=== PATIENT | male | born 1975 | race African-American/Black ===

== ENCOUNTER 2018-02-26 00:05 | Inpatient (IN) | payer SELFPAY ==
[2018-02-26] VITALS (8 sets, daily range): BP systolic 120–162; BP diastolic 59–96
[~2018-02-26] VITALS: Ht 193 cm; Wt 129.3 kg
--- OUTSIDE RECORDS SUMMARY | 2018-02-26 00:08 | XMS REPORT ---
[facility] Address Unknown Phone Unavailable Care Team Providers Care Voice Professor Name Role Phone Unavailable Unavailable Problems This patient has no known problems. Allergies, Adverse Reactions, Alerts This patient has no known allergies or adverse reactions. Medications This patient has no known medications. Encounters Start Date/Time End Date/Time Encounter Type Admission Type Attending [facility] [place] Facility Care Department Encounter ID 2018-07-11 00:00:00 2018-07-11 00:00:00 Outpatient [facility] [id number] 2018-05-03 00:00:00 2018-05-03 00:00:00 Outpatient [facility] [id number] 2018-03-18 00:00:00 2018-03-18 00:00:00 Outpatient [facility] [id number] 2018-03-08 00:00:00 2018-03-08 00:00:00 Outpatient [facility] [id number] 2018-02-28 00:00:00 2018-02-28 00:00:00 Outpatient [facility] [id number] 2018-02-25 23:03:00 2018-02-25 23:03:00 Emergency [facility] [id number] 2018-02-09 10:00:04 2018-02-09 10:00:04 Outpatient [facility] [id number] 2018-02-07 11:15:49 2018-02-07 11:15:49 Outpatient [facility] [id number] 2018-02-07 10:53:34 2018-02-07 10:53:34 Outpatient [facility] [id number] 2018-02-07 10:14:14 2018-02-07 10:14:14 Outpatient [facility] [id number] 2018-02-02 10:23:16 2018-02-02 10:23:16 Outpatient [facility] [id number] 2018-01-20 00:00:00 2018-01-20 00:00:00 Outpatient [facility] [id number] 2018-01-05 00:00:00 2018-01-05 00:00:00 Outpatient [facility] [id number] 2018-01-04 00:00:00 2018-01-04 00:00:00 Outpatient [facility] [id number] 2017-12-28 09:28:17 2017-12-28 09:28:17 Outpatient [facility] [id number] 2017-12-27 00:00:00 2017-12-27 00:00:00 Outpatient [facility] [id number] 2017-12-21 08:11:07 2017-12-21 08:11:07 Outpatient [facility] [id number] 2017-12-14 00:00:00 2017-12-14 00:00:00 Outpatient [facility] [id number] 2017-12-13 14:28:28 2017-12-13 14:28:28 Outpatient [facility] [id number] 2017-12-10 00:00:00 2017-12-10 00:00:00 Outpatient [facility] [id number] 2017-12-07 00:00:00 2017-12-07 00:00:00 Outpatient [facility] [id number] 2017-12-06 14:41:34 2017-12-06 14:41:34 Outpatient [facility] [id number] 2017-12-03 00:00:00 2017-12-03 00:00:00 Outpatient [facility] [id number] 2017-12-02 00:00:00 2017-12-02 00:00:00 Outpatient [facility] [id number] 2017-12-02 00:00:00 2017-12-02 00:00:00 Outpatient [facility] [id number] 2017-11-30 00:00:00 2017-11-30 00:00:00 Outpatient [facility] [id number] 2017-11-29 12:23:32 2017-11-29 12:23:32 Outpatient [facility] [id number] 2017-11-26 13:15:51 2017-11-26 13:15:51 Outpatient [facility] [id number] 2017-11-26 00:00:00 2017-11-26 00:00:00 Outpatient [facility] [id number] 2017-11-25 07:59:18 2017-11-25 07:59:18 Outpatient [facility] [id number] 2017-11-25 00:00:00 2017-11-25 00:00:00 Outpatient [facility] [id number] 2017-11-23 09:28:34 2017-11-23 09:28:34 Outpatient [facility] [id number] 2017-11-22 00:00:00 2017-11-22 00:00:00 Outpatient [facility] [id number] 2017-11-19 00:00:00 2017-11-19 00:00:00 Outpatient [facility] [id number] 2017-11-18 09:30:32 2017-11-18 09:30:32 Outpatient [facility] [id number] 2017-11-18 00:00:00 2017-11-18 00:00:00 Outpatient [facility] [id number] 2017-11-18 00:00:00 2017-11-18 00:00:00 Outpatient [facility] [id number] 2017-11-17 00:00:00 2017-11-17 00:00:00 Outpatient [facility] [id number] 2017-11-16 00:00:00 2017-11-16 00:00:00 Outpatient [facility] [id number] 2017-11-12 08:35:04 2017-11-12 08:35:04 Outpatient [facility] [id number] 2017-11-11 00:00:00 2017-11-11 00:00:00 Outpatient [facility] [id number] 2017-11-09 14:34:44 2017-11-09 14:34:44 Outpatient [facility] [id number] 2017-11-09 00:00:00 2017-11-09 00:00:00 Outpatient [facility] [id number] 2017-11-08 13:14:45 2017-11-08 13:14:45 Outpatient [facility] [id number] 2017-11-05 07:29:02 2017-11-05 07:29:02 Outpatient [facility] [id number] 2017-10-29 09:17:04 2017-10-29 09:17:04 Outpatient [facility] [id number] 2017-10-20 14:15:44 2017-10-20 14:15:44 Outpatient [facility] [id number] 2017-10-15 12:57:40 2017-10-15 12:57:40 Outpatient [facility] [id number] 2017-10-06 00:00:00 2017-10-06 00:00:00 Outpatient [facility] [id number] 2017-09-28 00:00:00 2017-09-28 00:00:00 Outpatient [facility] [id number] 2017-09-09 00:00:00 2017-09-09 00:00:00 Outpatient [facility] [id number] 2017-08-25 00:00:00 2017-08-25 00:00:00 Outpatient [facility] [id number] 2017-07-27 07:59:30 2017-07-27 07:59:30 Outpatient [facility] [id number] 2017-07-26 14:49:16 2017-07-26 14:49:16 Outpatient [facility] [id number] 2017-07-21 17:39:29 2017-07-21 17:39:29 Emergency [facility] [id number] 2017-07-21 16:30:12 2017-07-21 16:30:12 Emergency [facility] [id number] 2017-06-07 00:00:00 2017-06-07 00:00:00 Outpatient [facility] [id number] 2017-05-24 00:00:00 2017-05-24 00:00:00 Outpatient [facility] [id number] 2017-05-21 00:00:00 2017-05-21 00:00:00 Outpatient [facility] [id number] 2017-05-14 00:00:00 2017-05-14 00:00:00 Outpatient [facility] [id number] 2017-05-11 00:00:00 2017-05-11 00:00:00 Outpatient [facility] [id number] 2017-04-28 00:00:00 2017-04-28 00:00:00 Outpatient [facility] [id number] 2017-04-28 00:00:00 2017-04-28 00:00:00 Outpatient [facility] [id number] 2017-04-21 10:19:24 2017-04-21 10:19:24 Outpatient [facility] [id number] 2017-04-14 00:00:00 2017-04-14 00:00:00 Outpatient [facility] [id number] 2017-04-12 15:16:50 2017-04-12 15:16:50 Outpatient [facility] [id number] 2017-04-12 13:21:55 2017-04-12 13:21:55 Outpatient [facility] [id number] 2017-04-07 10:28:10 2017-04-07 10:28:10 Outpatient [facility] [id number] 2017-04-07 08:59:57 2017-04-07 08:59:57 Outpatient [facility] [id number] 2017-04-07 08:30:47 2017-04-07 08:30:47 Outpatient [facility] [id number]
[2018-02-26] MEDS ORDERED: LISINOPRIL10 MG PO (00:11)
[2018-02-26] MEDS ORDERED: GLYBURIDE5 MG PO (00:11)
[2018-02-26] MEDS ORDERED: LEVEMIR100 UNIT/1 SC (00:11)
[2018-02-26] MEDS ORDERED: ACETAMINOPHEN 325 MG TAB PO ONE (00:15)
[2018-02-26] MEDS ORDERED: SODIUM CHLORIDE 0.9% 1000ML 1,000 ML IV ONE (00:15)
[2018-02-26 00:32] LABS: BASOPHILS # (AUTO) 0.1 (0.0-0.1); BASOPHILS % 0.2 % (0.0-1.0); HEMATOCRIT 39.9 % (38.2-49.6); HEMOGLOBIN 13.5 g/dL (14.0-18.0); LYMPHOCYTES # (AUTO) 1.2 (1.0-3.2); LYMPHOCYTES % 4.3 % (18.0-39.1); MEAN CORPUSCULAR HGB CONC 33.8 g/dL (31-35); MEAN CORPUSCULAR VOLUME 82.6 fL (81-99); MONOCYTES # (AUTO) 2.4 (0.2-0.8); NEUTROPHILS # (AUTO) 23.1 (2.1-6.9); NEUTROPHILS % 84.9 % (38.7-80.0); PLATELET COUNT 276 x10e3/uL (140-360); RED BLOOD COUNT 4.83 x10e6/uL (4.3-5.7); RED CELL DISTRIBUTION WIDTH 12.9 % (11.7-14.4)
[2018-02-26 00:52] LABS: ALBUMIN 2.4 g/dL (3.5-5.0); ALBUMIN/GLOBULIN RATIO 0.4 (0.8-2.0); ANION GAP 20.7 mmol/L (8-16); CALCIUM 9.9 mg/dL (8.4-10.2); CREATININE, SERUM 2.73 mg/dL (0.72-1.25); POTASSIUM 3.7 mmol/L (3.5-5.1)
--- NOTE | 2018-02-26 01:19 | Diagnostic Imaging Report ---
FOOT LEFT COMPLETE HISTORY: Evaluation for osteomyelitis COMPARISON: None FINDINGS: Bones: There is evidence of bony lucency at the medial proximal fifth phalanx Osseous alignment is within normal limits. Joints: The joint spaces are well-maintained. Soft tissues: Soft tissue swelling involving the mid and forefoot with extensive subcutaneous emphysema about the dorsum of the forefoot overlying the region of the fourth and fifth metatarsophalangeal joints. IMPRESSION: Findings are compatible with soft tissue gangrene with gas producing bacteria and associated questionable osteomyelitis of the proximal fifth phalanx Signed by: Dr. Jared Whitten M.D. on 02/26/2018 1:15 AM
[2018-02-26] MEDS ORDERED: ONDANSETRON HCL INJ 2 MG/ML VIAL IV PRN (02:00)
[2018-02-26] MEDS ORDERED: DEXTROSE 50% SYRINGE 50 ML IV PRN (02:00)
[2018-02-26] MEDS: VANCOMYCIN 1GM/NS 250 ML 250 ML IV SCH ×2 (03:19→12:24)
[2018-02-26] MEDS: HYDROMORPHONE 1MG/1ML INJ IV PRN ×2 (04:35→12:23)
[2018-02-26] MEDS: SODIUM CHLORIDE 0.9% 1000ML 1,000 ML IV SCH ×3 (05:40→17:01)
[2018-02-26] MEDS: PIPER-TAZ 3.375 GM 50 ML IV SCH ×3 (06:21→23:33)
[2018-02-26] MEDS: INSULIN REGULAR, HUMAN 100 UNIT/1 ML 3ML VIAL SQ SCH ×4 (07:30→21:46)
[2018-02-26] MEDS: LISINOPRIL 10 MG TAB PO SCH (13:15)
[2018-02-26] MEDS ORDERED: GLYBURIDE 3 MG PO SCH (13:15)
[2018-02-26] MEDS: METRONIDAZOLE 500MG/NS 100ML 100 ML IV SCH ×2 (13:53→22:33)
[2018-02-26] MEDS: INSULIN DETEMIR 100 UNIT/ML PEN SQ SCH ×2 (14:00→21:46)
[2018-02-26] MEDS ORDERED: LIDOCAINE HCL 2% LOCAL INJ 5 ML SDV VIAL INJ ONE (15:24)
[2018-02-26] MEDS ORDERED: ONDANSETRON HCL INJ 2 MG/ML VIAL ONE (15:24)
[2018-02-26] MEDS ORDERED: SEVOFLURANE INHAL SOLN 250 ML PEN BTL ONE (15:24)
[2018-02-26] MEDS ORDERED: PROPOFOL IV EMULSION 10 MG/ML 20 ML VIAL ONE (15:24)
--- NOTE | 2018-02-26 16:23 | History and Physical ---
The patient is normally seen at one of the [facility] clinics. CHIEF COMPLAINT: Swelling and erythema, left foot. HISTORY OF PRESENT ILLNESS: Mr. Kulkarni is a 43-year-old gentleman who presents with swelling and erythema of the left lateral foot that has been going on for several days. The patient said he stepped on something that caused a cut on the left lateral forefoot and has subsequently become infected. REVIEW OF SYSTEMS: He has had some subjective fever and chills. He denies weight loss. He denies sore throat. He denies chest pain or palpitations. Denies shortness of breath, wheezing or cough. He denies abdominal pain, nausea, vomiting or melena. Denies dysuria or flank pain. Denies rash or pruritus. Has swelling and erythema of the left lateral foot as noted. He denies bleeding or bruising. He denies joint pain or swelling. He denies headache, vertigo or loss of consciousness. He denies depression, agitation, homicidal or suicidal ideation. PAST MEDICAL HISTORY: Significant for hypertension and diabetes for several years. In 2010, the patient had a pericardial window done for acute pericarditis, etiology unknown. Has had no subsequent cardiac issues since then. CURRENT MEDICATIONS: Glyburide 6 mg daily. Lisinopril 10 mg daily. Levemir 10 units at bedtime. ALLERGIES: NO KNOWN DRUG ALLERGIES. FAMILY HISTORY: Significant for hypertension and diabetes. SOCIAL HISTORY: He is and Hebrew is his primary language. He does not smoke, drink or use illegal drugs. He is generally independently functioning. PHYSICAL EXAM: PSYCHIATRIC: He is alert and oriented times 3 with normal mood and affect. CONSTITUTIONAL: Has a normal body habitus. Is in no acute distress. VITAL SIGNS: Blood pressure 157/91. Pulse 105 and regular. Respiratory rate 18. O2 sat 98%. Temperature 96.3. He presented with a temperature of 100.2. HEENT: Head is atraumatic. His eyes are anicteric with clear conjunctivae. Ears and nares are without erythema or discharge. Oropharynx is clear. NECK: Is supple with no mass or thyromegaly. LYMPHATIC SYSTEM: He has no palpable cervical, axillary or inguinal adenopathy. CARDIOVASCULAR: Heart has a regular rate and rhythm without murmur or extra heart sounds. No carotid bruit. He has trace edema in the left foot where the infection is. No edema in the right foot and has weak but palpable dorsal pedal pulse bilaterally. RESPIRATORY: Clear to auscultation and percussion with normal respiratory effort. GASTROINTESTINAL: Abdomen is soft without organomegaly, masses or tenderness. Normal bowel sounds present. CUTANEOUS: Skin is warm and dry to touch. He has some swelling and erythema of the left lateral forefoot with some evidence of gas under the skin and abscess formation between the 4th and 5th metatarsal. MUSCULOSKELETAL: Joints are normal alignment without erythema or swelling. His ankle appears to be spared. It is predominantly involving the left forefoot, lateral aspect. NEUROLOGIC: Exam is nonfocal with intact cranial nerves and no motor or sensory deficits. He has no calf tenderness. DIAGNOSTIC STUDIES: X-rays of the left foot shows gas gangrene of the dorsal lateral aspect of the left foot. CBC shows a white count of 27.1 with 85% neutrophils, 4% lymphocytes and 9% monocytes. Hemoglobin 13.5, hematocrit 39.4, platelet count 276,000. His chemistry shows normal electrolytes. CO2 25. Creatinine 2.73. BUN 23 for a GFR of 31. Calcium is 9.9. Glucose 348. Followup glucose 356. Transaminases and bilirubin are normal. Alkaline phosphatase slightly elevated at 131. IMPRESSION AND PLAN 1. Cellulitis/abscess, left foot with severe sepsis. Patient was started on IV vancomycin and Zosyn. Podiatry has been consulted. The patient received a IV fluid bolus and is currently receiving IV fluids at 125 mL an hour. 2. Acute kidney injury versus chronic kidney disease. The patient has received fluid bolus and is now getting aggressive IV fluid hydration. Will monitor renal function until we establish his baseline. 3. Diabetic foot ulcer on the left lateral forefoot. Will get wound care involved and podiatry has been consulted as well. 4. Hypertension. The patient will continue his lisinopril. 5. Type 2 diabetes. The patient will continue his glyburide and will add sliding scale insulin for better glycemic control as well as some low-dose :Levemir. 6. For prophylaxis the patient will be on Pepcid for GI prophylaxis. No DVT prophylaxis at this time since the patient remains ambulatory and will likely have surgery in the near future. Job#: [id number]
[2018-02-26] MEDS: FAMOTIDINE 20 MG TAB PO SCH (17:00)
[2018-02-26] MEDS ORDERED: MIDAZOLAM HCL 2 MG/2 ML VIAL ONE (17:50)
[2018-02-26] MEDS ORDERED: FENTANYL CITRATE/PF 100MCG/2 ML INJ ONE (17:50)
[2018-02-27] VITALS (8 sets, daily range): BP systolic 123–142; BP diastolic 66–86
[2018-02-27] MEDS: SODIUM CHLORIDE 0.9% 1000ML 1,000 ML IV SCH (02:55)
[2018-02-27] MEDS: METRONIDAZOLE 500MG/NS 100ML 100 ML IV SCH ×3 (05:11→21:51)
[2018-02-27] MEDS: PIPER-TAZ 3.375 GM 50 ML IV SCH ×3 (06:14→22:07)
[2018-02-27 06:44] LABS: BASOPHILS # (AUTO) 0.1 (0.0-0.1); BASOPHILS % 0.3 % (0.0-1.0); HEMATOCRIT 33.7 % (38.2-49.6); HEMOGLOBIN 11.6 g/dL (14.0-18.0); LYMPHOCYTES # (AUTO) 1.1 (1.0-3.2); LYMPHOCYTES % 4.3 % (18.0-39.1); MEAN CORPUSCULAR HEMOGLOBIN 28.4 pg (28-32); MEAN CORPUSCULAR HGB CONC 34.4 g/dL (31-35); MEAN CORPUSCULAR VOLUME 82.4 fL (81-99); MONOCYTES # (AUTO) 2.3 (0.2-0.8); MONOCYTES % 9.2 % (4.4-11.3); NEUTROPHILS # (AUTO) 20.8 (2.1-6.9); NEUTROPHILS % 83.4 % (38.7-80.0); PLATELET COUNT 262 x10e3/uL (140-360); RED BLOOD COUNT 4.09 x10e6/uL (4.3-5.7); RED CELL DISTRIBUTION WIDTH 12.9 % (11.7-14.4)
[2018-02-27 07:15] LABS: CHOL/HDL RATIO 13.1 (3.9-4.7); MAGNESIUM 1.4 MG/DL (1.3-2.1)
[2018-02-27] MEDS: INSULIN REGULAR, HUMAN 100 UNIT/1 ML 3ML VIAL SQ SCH ×4 (07:30→21:12)
[2018-02-27] MEDS: FAMOTIDINE 20 MG TAB PO SCH ×2 (07:30→16:30)
[2018-02-27] MEDS: GLIPIZIDE 5 MG TAB PO SCH (07:30)
[2018-02-27 07:35] LABS: ALBUMIN 1.7 g/dL (3.5-5.0); ALBUMIN/GLOBULIN RATIO 0.3 (0.8-2.0); ANION GAP 15.1 mmol/L (8-16); CALCIUM 8.9 mg/dL (8.4-10.2); CREATININE, SERUM 2.52 mg/dL (0.72-1.25); POTASSIUM 3.1 mmol/L (3.5-5.1)
[2018-02-27 07:38] LABS: THYROID STIMULATING HORMONE 1.542 uIU/mL (0.350-4.940)
[2018-02-27] MEDS ORDERED: GLYBURIDE 6 MG PO SCH (09:00)
[2018-02-27] MEDS: INSULIN DETEMIR 100 UNIT/ML PEN SQ SCH ×2 (09:00→21:12)
[2018-02-27] MEDS: VANCOMYCIN 1GM/NS 250 ML 250 ML IV SCH (09:36)
[2018-02-27] MEDS: LISINOPRIL 10 MG TAB PO SCH (09:36)
[2018-02-27] MEDS ORDERED: BUPIVACAINE HCL 0.5% INJ 30 ML VIAL INJ ONE (10:03)
[2018-02-27] MEDS ORDERED: BACITRACIN 50,000 UNIT VIAL ONE (10:03)
[2018-02-27] MEDS ORDERED: DEXAMETHASONE SOD PHOS INJ 4 MG/ML VIAL ONE (10:03)
[2018-02-27] MEDS ORDERED: VANCOMYCIN 1GM/NS 250 ML 250 ML ONE (10:40)
[2018-02-27] MEDS ORDERED: POTASSIUM CHLORIDE 20 MEQ TAB CR PO ONE (11:00)
[2018-02-27] MEDS ORDERED: KCL 20MEQ/.9 SOD CHL 1,000 ML IV ONE (11:30)
[2018-02-27 12:08] LABS: BAND NEUTROPHILS % (MANUAL) 7 %; LYMPHOCYTES % (MANUAL) 7 % (19-48); MONOCYTES % (MANUAL) 11 % (3.4-9.0); NEUTROPHILS % (MANUAL) 75 % (40-74); PLATELET ESTIMATE ADEQUATE; PLATELET MORPHOLOGY COMMENT NORMAL; RBC MORPHOLOGY COMMENT NORMAL
[2018-02-27] MEDS: HYDROMORPHONE 1MG/1ML INJ IV PRN ×2 (16:50→18:00)
--- NOTE | 2018-02-27 18:24 | Operative Report ---
DATE OF PROCEDURE: February 27, 2018 SURGEON: Rasheeda REILLY This is a patient of Dr. Doroteo Holder. PREOPERATIVE DIAGNOSIS: Abscess, cellulitis, gas gangrene and osteomyelitis, lateral aspect of the left foot. POSTOPERATIVE DIAGNOSIS: Abscess, cellulitis, gas gangrene and osteomyelitis, lateral aspect of the left foot. OPERATIVE PROCEDURE: Incision and drainage on the dorsolateral and plantar lateral aspects of the left foot and also on the dorsum of the left foot over the 2nd, 3rd and 4th digits. Also, amputation of the 5th digit and distal one-third of the 5th metatarsal. DETAILS OF PROCEDURE: The patient was placed on the OR table in the supine position. The left lower extremity was prepped and draped in the usual manner. A general anesthetic was administered and hemostasis accomplished using a pneumatic cuff set at 250 mmHg at ankle level. An incision was started in the sulcus area between the 4th and 5th toes. It was extended under the plantar aspect of the toe and then directed proximal medial to take in the plantar ulcer under the 5th metatarsal head. The incision was then extended proximally and more dorsally. A 2nd incision was started at the same area in the sulcus of the 5th toe and extended proximally and slightly plantarly. This enclosed the 5th toe and the ulcer on the plantar aspect of the foot. The incision was deepened. The 5th toe was disarticulated from the head of the metatarsal, and the soft tissue including the plantar ulcer was removed in total. A large amount of gas gangrene was visualized and also a smell, a very strong odor. Cultures, both aerobic and anaerobic, were taken at this time. The necrotic, gaseous tissue was then removed from the dorsal aspect of the metatarsal head. The soft tissue was dissected away from the metatarsal and approximately the distal one-third was removed with the power saw. With probing, the gas went across the dorsal aspect of the foot so a 2nd incision was made in the area over the 3rd metatarsophalangeal joint. A large amount of gas was also removed from this area, and the necrotic tissue from this area was also excised. We could probe, and it extended over to the 2nd metatarsophalangeal joint, so this area was opened and debrided also. The wound was then flushed with a Pulsavac with Bacitracin antibiotic. Once this was done, the remaining necrotic tissue was removed. The wound was again flushed with a Pulsavac with Bacitracin. We then packed the wound with 1/2-inch iodoform gauze. The packing extended over to the area over the 2nd metatarsophalangeal joint and back to the 3rd. From the lateral wound, the area over the 4th metatarsal head and the area that was previously held by the 5th metatarsal head was packed also. We were unable to close the lateral wound because of the packing and also the amount of tissue that had to be removed. Two horizontal mattress sutures were placed to pull the edges closer together. Fifteen mL of 0.5 Marcaine were then injected to minimize postop pain. Betadine was added to the dressing, and a sterile compression dressing was applied. At this time, the pneumatic cuff was removed, and a reflex hyperemia was observed to the remaining digits. The patient tolerated the procedure and anesthesia well and left to recovery in good condition with vital signs stable. Job#: [id number] KELSEA JIMENEZ
--- NOTE | 2018-02-27 18:24 | Consultation ---
DATE OF CONSULTATION: February 27, 2018 PODIATRIC CONSULTATION This is a 43-year-old insulin-dependent diabetic male. He relates his previous treatment has been at the [facility]. He was admitted through the emergency room with severe cellulitis and gas gangrene on the dorsal and lateral aspect of the left foot. The patient relates that he has had an open wound on the plantar aspect of the left 5th metatarsal for several months. He has been seeking treatment at the [facility] and also self treating. He relates that he was trimming the callus and cut himself approximately 3-4 days ago and the cellulitis has progressively gotten worse. On admission, the patient's white count was 27+. X-rays done on admitting indicate pockets of gas gangrene on the dorsal and lateral aspect of the 5th metatarsal head and across the dorsal aspect of the foot. My impression is that the patient has abscess cellulitis with gas gangrene and also, according to the x-ray report, has for sure osteomyelitis in the base of the 5th proximal phalanx, possibly in the 5th metatarsal head. Our recommendation is that the patient be taken to the OR and an I\T\D be performed with also amputation of the 5th toe and the distal one-third of the 5th metatarsal. The patient had not had breakfast, and only a small amount of water, so the surgery was scheduled and was to start at 10 o'clock. Job#: [id number]
[2018-02-28] VITALS: BP 142/79
[2018-02-28] MEDS: HYDROMORPHONE 1MG/1ML INJ IV PRN (00:38)
[2018-02-28] MEDS ORDERED: KCL 20MEQ/.9 SOD CHL 1,000 ML IV ONE ×2 (03:45→14:30)
[2018-02-28 04:00] VITALS: BP 154/94
[2018-02-28] MEDS: METRONIDAZOLE 500MG/NS 100ML 100 ML IV SCH ×3 (05:28→23:37)
[2018-02-28] MEDS: PIPER-TAZ 3.375 GM 50 ML IV SCH ×3 (05:28→22:03)
[2018-02-28 06:28] LABS: BASOPHILS # (AUTO) 0.1 (0.0-0.1); BASOPHILS % 0.4 % (0.0-1.0); EOSINOPHILS % 0.1 % (0.0-6.0); HEMATOCRIT 32.1 % (38.2-49.6); HEMOGLOBIN 10.9 g/dL (14.0-18.0); LYMPHOCYTES # (AUTO) 1.6 (1.0-3.2); LYMPHOCYTES % 6.9 % (18.0-39.1); MEAN CORPUSCULAR VOLUME 82.5 fL (81-99); MONOCYTES % 9.1 % (4.4-11.3); NEUTROPHILS # (AUTO) 17.9 (2.1-6.9); NEUTROPHILS % 79.9 % (38.7-80.0); PLATELET COUNT 265 x10e3/uL (140-360); RED BLOOD COUNT 3.89 x10e6/uL (4.3-5.7); RED CELL DISTRIBUTION WIDTH 13.4 % (11.7-14.4)
[2018-02-28 06:48] LABS: ANION GAP 13.4 mmol/L (8-16); CALCIUM 8.6 mg/dL (8.4-10.2); CREATININE, SERUM 2.27 mg/dL (0.72-1.25); MAGNESIUM 1.7 MG/DL (1.3-2.1); POTASSIUM 3.4 mmol/L (3.5-5.1)
[2018-02-28] MEDS: GLIPIZIDE 5 MG TAB PO SCH (07:30)
[2018-02-28] MEDS: FAMOTIDINE 20 MG TAB PO SCH ×2 (07:30→16:30)
[2018-02-28] MEDS: INSULIN REGULAR, HUMAN 100 UNIT/1 ML 3ML VIAL SQ SCH ×4 (07:30→21:58)
[2018-02-28 08:00] VITALS: BP 156/88
[2018-02-28] MEDS: LISINOPRIL 10 MG TAB PO SCH (09:00)
[2018-02-28] MEDS: INSULIN DETEMIR 100 UNIT/ML PEN SQ SCH ×2 (09:00→21:58)
[2018-02-28] MEDS: VANCOMYCIN 1GM/NS 250 ML 250 ML IV SCH (09:00)
[2018-02-28 09:38] LABS: BAND NEUTROPHILS % (MANUAL) 3 %; LYMPHOCYTES % (MANUAL) 7 % (19-48); METAMYELOCYTES % (MANUAL) 1 % (0-0); MONOCYTES % (MANUAL) 10 % (3.4-9.0); MYELOCYTES % (MANUAL) 2 % (0-0); NEUTROPHILS % (MANUAL) 76 % (40-74); PROMYELOCYTES % (MANUAL) 1 % (0-0)
[2018-02-28 09:39] LABS: ANISOCYTOSIS SLIGHT; HYPOCHROMASIA SLIGHT; PLATELET ESTIMATE ADEQUATE; PLATELET MORPHOLOGY COMMENT NORMAL; POIKILOCYTOSIS SLIGHT; RBC MORPHOLOGY COMMENT NORMAL
[2018-02-28] MEDS ORDERED: ONDANSETRON HCL 4 MG ORAL DISINTEGRATING TAB PO PRN (10:15)
--- NOTE | 2018-02-28 10:57 | Diagnostic Imaging Report ---
TECHNIQUE: Magnetic resonance imaging of the LEFT foot was performed WITHOUT injected contrast. HISTORY: Osteomyelitis, rule out COMPARISON: Left foot radiographs February 26, 2018. DISCUSSION: Bone: Interval amputation of the fifth ray at the level of the distal fifth metatarsal diaphysis. Subtle expected bone marrow edema adjacent to the resection margin. Joints: Mild degenerative changes of the first metatarsophalangeal joint. Trace nonspecific effusions of the first and third metatarsophalangeal joints. Soft Tissues: Soft tissue defect overlying the amputation site. Prominent nonspecific soft tissue edema and regional air foci, compatible with recent surgery. IMPRESSION: 1. Status post amputation of the fifth ray at the level of the distal fifth metatarsal diaphysis. 2. No MRI evidence of residual or progressive osteomyelitis. 3. No drainable abscess. Signed by: Dr. Rm Rodriguez D.O., M.M.M. on 02/28/2018 10:53 AM
[2018-02-28 12:34] VITALS: BP 143/89
[2018-02-28 20:00] VITALS: BP 173/92
[2018-02-28] MEDS: ACETAMINOPHEN 325 MG TAB PO PRN (22:03)
[2018-02-28] MEDS: HYDRALAZINE HCL 20 MG/ML VIAL IV PRN (22:04)
[2018-03-01] VITALS: BP 156/84
[2018-03-01 04:00] VITALS: BP 168/87
[2018-03-01] MEDS: PIPER-TAZ 3.375 GM 50 ML IV SCH ×3 (05:22→22:02)
[2018-03-01] MEDS: HYDRALAZINE HCL 20 MG/ML VIAL IV PRN ×2 (05:22→22:02)
[2018-03-01 06:13] LABS: BASOPHILS # (AUTO) 0.1 (0.0-0.1); BASOPHILS % 0.6 % (0.0-1.0); EOSINOPHILS # (AUTO) 0.1 (0.0-0.4); EOSINOPHILS % 0.3 % (0.0-6.0); HEMATOCRIT 31.9 % (38.2-49.6); HEMOGLOBIN 10.9 g/dL (14.0-18.0); LYMPHOCYTES # (AUTO) 2.1 (1.0-3.2); LYMPHOCYTES % 9.7 % (18.0-39.1); MEAN CORPUSCULAR HEMOGLOBIN 28.2 pg (28-32); MEAN CORPUSCULAR HGB CONC 34.2 g/dL (31-35); MEAN CORPUSCULAR VOLUME 82.6 fL (81-99); MONOCYTES # (AUTO) 2.1 (0.2-0.8); MONOCYTES % 9.9 % (4.4-11.3); NEUTROPHILS # (AUTO) 15.7 (2.1-6.9); NEUTROPHILS % 73.8 % (38.7-80.0); PLATELET COUNT 300 x10e3/uL (140-360); RED BLOOD COUNT 3.86 x10e6/uL (4.3-5.7); RED CELL DISTRIBUTION WIDTH 13.5 % (11.7-14.4)
[2018-03-01] MEDS: METRONIDAZOLE 500MG/NS 100ML 100 ML IV SCH (06:27)
[2018-03-01 06:50] LABS: ANION GAP 11.9 mmol/L (8-16); CREATININE, SERUM 1.91 mg/dL (0.72-1.25); MAGNESIUM 1.4 MG/DL (1.3-2.1)
[2018-03-01 06:53] LABS: POTASSIUM 2.9 mmol/L (3.5-5.1)
[2018-03-01] MEDS: INSULIN REGULAR, HUMAN 100 UNIT/1 ML 3ML VIAL SQ SCH ×4 (07:30→20:37)
[2018-03-01] MEDS: GLIPIZIDE 5 MG TAB PO SCH (07:30)
[2018-03-01] MEDS: FAMOTIDINE 20 MG TAB PO SCH ×2 (07:30→16:30)
[2018-03-01 08:05] VITALS: BP 158/92
--- NOTE | 2018-03-01 08:20 | Progress Note ---
DATE: March 01, 2018 SUBJECTIVE: This is a 43-year-old male with a past medical history of diabetes and hypertension, who is postop day #2 left foot incision and drainage with partial 5th ray resection by Dr. Nunez. He relates to some pain to the left foot at this time. He currently denies chills. He denies nausea and vomiting, but does relate to decreased appetite. The patient did have fever overnight. No other pedal complaints. OBJECTIVE: Vital signs today: Temperature is 98.3. T-max overnight was 100.3. Pulse 90, respiratory rate 19, blood pressure 168/87, pulse ox 95% on room air. PROBLEM-FOCUSED LOWER EXTREMITY EXAM VASCULAR: Dorsalis pedis pulse is palpable at 1/4. Posterior tibial pulse is palpable at 1/4. Capillary refill time is delayed to digits 1, 2, and 3. There is a cyanotic discoloration to the digits. The foot is warm to the touch. NEUROLOGIC: Sensation appears to be absent to left lower extremity. MUSCULOSKELETAL: Partial 5th ray resection to the left foot. Mild pain on palpation while removing packing. DERMATOLOGICAL: Two large, open, postsurgical wounds are noted to the patient's left foot with packing in place. Upon removal of the packing, there were large amounts of necrotic and fibrotic tissue. One incision site is noted over the 3rd interspace and one over the previously resected 5th metatarsal. The skin island in the middle is macerated and appears to be dusky. Erythema, edema and warmth still remain greater than 2 cm. No active drainage is noted at this time. LABS: White blood cell count is 21, hemoglobin 10.9, hematocrit 31.9, platelet count 300. Sodium 137, potassium 2.9, chloride 103, BUN 19, creatinine 1.9, glucose 157, hemoglobin A1c 12. MICROBIOLOGY: Beta-hemolytic strep sensitivities are pending. IMAGING: Left foot MRI reveals status post amputation of the 5th ray at the level of the distal 5th metatarsal diaphysis. No MRI evidence of residual or progressive osteomyelitis. No drainable abscess is noted. ASSESSMENT 1. Left foot osteomyelitis with gas gangrene and cellulitis, postoperative day #2 left partial 5th ray resection. 2. Type-2 diabetes with peripheral neuropathy, uncontrolled. Hemoglobin A1c at 12. 3. Sepsis. PLAN: Patient was seen and evaluated. Discussed condition, MRI results and labs with the patient in detail. I discussed with the patient at this time we will continue to monitor the wound with local wound care with Betadine wet-to-dry and IV antibiotics until sensitivities return. Recommend consultation with infectious disease for antibiotic management. Discussed with the patient the prognosis is poor at this time. The patient may need additional revisional surgery with incision and drainage or more proximal amputation. Dressing was changed today with Betadine wet-to-dry. The podiatry service will continue to monitor as an inpatient. Job#: [id number]
[2018-03-01 08:21] LABS: BAND NEUTROPHILS % (MANUAL) 1 %; LYMPHOCYTES % (MANUAL) 11 % (19-48); MONOCYTES % (MANUAL) 8 % (3.4-9.0); MYELOCYTES % (MANUAL) 1 % (0-0); NEUTROPHILS % (MANUAL) 78 % (40-74)
[2018-03-01 08:22] LABS: ANISOCYTOSIS MODERATE; PLATELET ESTIMATE ADEQUATE; PLATELET MORPHOLOGY COMMENT FEW LARGE; RBC MORPHOLOGY COMMENT NORMAL
[2018-03-01] MEDS: LISINOPRIL 10 MG TAB PO SCH (09:00)
[2018-03-01] MEDS: VANCOMYCIN 1GM/NS 250 ML 250 ML IV SCH (09:00)
[2018-03-01] MEDS: INSULIN DETEMIR 100 UNIT/ML PEN SQ SCH ×2 (09:00→20:37)
[2018-03-01 12:05] VITALS: BP 159/90
[2018-03-01] MEDS ORDERED: POTASSIUM CHLORIDE 20 MEQ TAB CR PO NR (13:00)
[2018-03-01] MEDS ORDERED: KCL 40MEQ/0.9% SOD CHL 1,000 ML IV ONE (13:45)
[2018-03-01] MEDS: MEGACE 400MG/ 10ML CUP PO SCH (14:15)
[2018-03-01] MEDS ORDERED: VANCOMYCIN 750MG/NS 150ML IVPB 150 ML IV SCH ×2 (15:00→21:00)
[2018-03-01 16:00] VITALS: BP 160/93
[2018-03-01] MEDS: ASCORBIC ACID 500 MG TAB PO SCH (17:00)
[2018-03-01] MEDS: ZINC SULFATE 220 MG CAP PO SCH (17:00)
[2018-03-01] MEDS: OYST-CAL-D 500MG TABLET PO SCH (17:00)
[2018-03-01] MEDS: MAGNESIUM OXIDE 400 MG TAB PO SCH (17:00)
[2018-03-01 20:05] VITALS: BP 171/97
[2018-03-01] MEDS ORDERED: HYDROMORPHONE 1MG/1ML INJ IV STA (21:56)
[2018-03-01] MEDS ORDERED: HYDROCODONE/APAP 5MG-325MG TAB PO PRN (22:00)
[2018-03-02 00:32] VITALS: BP 136/83
[2018-03-02 05:00] VITALS: BP 153/88
[2018-03-02] MEDS: PIPER-TAZ 3.375 GM 50 ML IV SCH ×2 (05:31→14:00)
[2018-03-02 06:42] LABS: BASOPHILS # (AUTO) 0.2 (0.0-0.1); BASOPHILS % 0.8 % (0.0-1.0); EOSINOPHILS # (AUTO) 0.1 (0.0-0.4); EOSINOPHILS % 0.7 % (0.0-6.0); HEMATOCRIT 32.2 % (38.2-49.6); HEMOGLOBIN 10.9 g/dL (14.0-18.0); LYMPHOCYTES # (AUTO) 2.2 (1.0-3.2); LYMPHOCYTES % 11.3 % (18.0-39.1); MEAN CORPUSCULAR HEMOGLOBIN 28.2 pg (28-32); MEAN CORPUSCULAR HGB CONC 33.9 g/dL (31-35); MEAN CORPUSCULAR VOLUME 83.4 fL (81-99); MONOCYTES # (AUTO) 1.7 (0.2-0.8); MONOCYTES % 8.9 % (4.4-11.3); NEUTROPHILS # (AUTO) 13.7 (2.1-6.9); NEUTROPHILS % 71.8 % (38.7-80.0); PLATELET COUNT 344 x10e3/uL (140-360); RED BLOOD COUNT 3.86 x10e6/uL (4.3-5.7); RED CELL DISTRIBUTION WIDTH 15.1 % (11.7-14.4)
[2018-03-02] MEDS: INSULIN REGULAR, HUMAN 100 UNIT/1 ML 3ML VIAL SQ SCH ×4 (07:30→20:47)
[2018-03-02 07:56] LABS: ANION GAP 13.1 mmol/L (8-16); CALCIUM 9.4 mg/dL (8.4-10.2); CREATININE, SERUM 1.75 mg/dL (0.72-1.25); MAGNESIUM 1.5 MG/DL (1.3-2.1); POTASSIUM 3.1 mmol/L (3.5-5.1)
[2018-03-02 08:00] VITALS: BP 174/94
[2018-03-02] MEDS: FAMOTIDINE 20 MG TAB PO SCH ×2 (08:56→18:10)
[2018-03-02] MEDS: GLIPIZIDE 5 MG TAB PO SCH (08:56)
[2018-03-02] MEDS: LISINOPRIL 10 MG TAB PO SCH (08:57)
[2018-03-02] MEDS: ZINC SULFATE 220 MG CAP PO SCH ×2 (08:57→18:10)
[2018-03-02] MEDS: OYST-CAL-D 500MG TABLET PO SCH ×2 (08:57→18:10)
[2018-03-02] MEDS: MAGNESIUM OXIDE 400 MG TAB PO SCH ×2 (08:57→18:10)
[2018-03-02] MEDS: MEGACE 400MG/ 10ML CUP PO SCH (08:57)
[2018-03-02] MEDS: MULTIVITAMINS/MINERALS TAB PO SCH (08:57)
[2018-03-02] MEDS: ASCORBIC ACID 500 MG TAB PO SCH ×2 (08:57→18:10)
[2018-03-02] MEDS: INSULIN DETEMIR 100 UNIT/ML PEN SQ SCH ×2 (08:58→21:45)
[2018-03-02] MEDS ORDERED: MEGACE 400MG/ 10ML CUP PO SCH (09:00)
[2018-03-02] MEDS: VANCOMYCIN 750MG/NS 150ML IVPB 150 ML IV SCH ×2 (09:30→20:50)
--- NOTE | 2018-03-02 09:40 | Progress Note ---
DATE: March 02, 2018 SUBJECTIVE: A 43-year-old male with past medical history of diabetes and hypertension, postop day 3 of left foot incision and drainage with partial 5th ray resection. He continues to relate to some pain to the foot at this time. Denies chills. Denies nausea and vomiting, but continues to have decreased appetite. However, does relate to eating fruit yesterday. The patient did not have any fevers overnight. No other pedal complaints. OBJECTIVE VITAL SIGNS: Today, temperature is 97.5, heart rate 88, respiratory rate 21, blood pressure 153/88, pulse ox is 95% on room air. Did not have fever overnight. LOWER EXTREMITY PHYSICAL EXAMINATION VASCULAR: Dorsalis pedis pulse is faintly palpable at 1/4. Posterior tibial pulse is faintly palpable at 1/4. Capillary refill time is delayed to digits 1, 2 and 3. There does appear to be a cyanotic discoloration to the digits. The foot is warm to the touch. NEUROLOGICAL: Sensation is absent to the left lower extremity. MUSCULOSKELETAL: Partial 5th ray resection to the left foot. Pain on palpation. DERMATOLOGICAL: Two large open postsurgical wounds are noted to the patient's left foot to the lateral aspect and over the 3rd interspace. Upon removal of the dressing, the superficial epithelial skin was peeled back with a large blister formation to the level of the midfoot laterally, as well as medially. The wound beds of the postsurgical incision sites are fibrotic with some necrotic tissue. There is tendon exposed. The skin island in between the incisions is macerated and dusky. Erythema, edema and warmth still remain greater than 2 cm. No active drainage is noted at this time. White blood cell count is 19.4, hemoglobin 10.9, hematocrit 32.2, and platelet count 344,000. Sodium 139, potassium 3.1, chloride 101, BUN 16, creatinine 1.75, glucose 163. Hemoglobin A1c is 12. MICROBIOLOGY: Group B strep sensitive to penicillin. IMAGING: Left foot MRI reveals status post amputation of the 5th ray at the level of the 5th metatarsal diaphysis. No MRI evidence of residual or progressive osteomyelitis. No drainable abscess is noted. ASSESSMENT 1. Left foot osteomyelitis with gas gangrene and cellulitis, postop day 3, left partial 5th ray resection. 2. Type 2 diabetes with peripheral neuropathy, uncontrolled: Hemoglobin A1c is 12. PLAN: The patient was seen and evaluated. Discussed condition and MRI results with the patient in detail. At this time, the wound appears to be worsening with blister formation and epithelium peeling back to the level of the midfoot. There is dry, necrotic and fibrotic consistency to both wound beds. Non-blister formation is present medially. The patient is currently afebrile. Leukocytosis still remains at 19 down from 21 yesterday. Will continue with IV antibiotics and local wound care at this time with Betadine wet-to-dry. Discussed with the patient he may need additional surgery with incision and drainage, or a more proximal amputation. Based on the skin quality and blister formation today, it appears that the patient's foot may not be salvageable with a transmetatarsal amputation, and may need a below knee amputation. Will discuss with the patient and the patient's family. The podiatry service will continue to monitor as an inpatient. Job#: [id number] [place]
[2018-03-02] MEDS ORDERED: POTASSIUM CHLORIDE 20 MEQ TAB CR PO STA (10:40)
[2018-03-02 11:11] LABS: HOWELL-JOLLY BODIES FEW; HYPOCHROMASIA SLIGHT; LYMPHOCYTES % (MANUAL) 12 % (19-48); MONOCYTES % (MANUAL) 12 % (3.4-9.0); NEUTROPHILS % (MANUAL) 74 % (40-74); NUCLEATED RED BLOOD CELLS 1
[2018-03-02 11:12] LABS: ANISOCYTOSIS SLIGHT; PLATELET ESTIMATE ADEQUATE; PLATELET MORPHOLOGY COMMENT NORMAL; RBC MORPHOLOGY COMMENT NORMAL
[2018-03-02] MEDS: METOCLOPRAMIDE HCL 10 MG/2ML VIAL IV SCH ×3 (11:30→20:50)
[2018-03-02 12:00] VITALS: BP 159/99
[2018-03-02] MEDS ORDERED: HYDROCODONE/APAP 5MG-325MG TAB PO PRN (15:30)
[2018-03-02 16:00] VITALS: BP 199/102
[2018-03-02 20:27] VITALS: BP 166/78
[2018-03-02] MEDS ORDERED: SODIUM CHLORIDE 0.9% 250ML 250 ML ONE (20:56)
[2018-03-02] MEDS: PIPER-TAZ 3.375 GM 100 ML IV SCH (22:45)
[2018-03-03] VITALS: BP 136/77
[2018-03-03] MEDS: PIPER-TAZ 3.375 GM 100 ML IV SCH ×3 (06:12→23:00)
[2018-03-03 06:16] LABS: BASOPHILS # (AUTO) 0.1 (0.0-0.1); BASOPHILS % 0.4 % (0.0-1.0); EOSINOPHILS # (AUTO) 0.2 (0.0-0.4); HEMATOCRIT 29.8 % (38.2-49.6); HEMOGLOBIN 10.2 g/dL (14.0-18.0); LYMPHOCYTES % 10.6 % (18.0-39.1); MEAN CORPUSCULAR HEMOGLOBIN 27.9 pg (28-32); MEAN CORPUSCULAR HGB CONC 34.2 g/dL (31-35); MEAN CORPUSCULAR VOLUME 81.4 fL (81-99); MONOCYTES # (AUTO) 1.6 (0.2-0.8); MONOCYTES % 8.7 % (4.4-11.3); NEUTROPHILS # (AUTO) 13.5 (2.1-6.9); NEUTROPHILS % 73.5 % (38.7-80.0); PLATELET COUNT 338 x10e3/uL (140-360); RED BLOOD COUNT 3.66 x10e6/uL (4.3-5.7)
[2018-03-03 06:47] LABS: ANION GAP 10.7 mmol/L (8-16); CALCIUM 8.7 mg/dL (8.4-10.2); CREATININE, SERUM 1.54 mg/dL (0.72-1.25); MAGNESIUM 1.3 MG/DL (1.3-2.1)
[2018-03-03 06:51] LABS: POTASSIUM 2.7 mmol/L (3.5-5.1)
[2018-03-03] MEDS ORDERED: MAGNESIUM SULFATE 2GM/50ML 50 ML IV ONE ×3 (07:15→10:00)
[2018-03-03] MEDS: INSULIN REGULAR, HUMAN 100 UNIT/1 ML 3ML VIAL SQ SCH ×4 (07:30→21:00)
[2018-03-03 08:00] VITALS: BP 141/75
[2018-03-03] MEDS: GLIPIZIDE 5 MG TAB PO SCH (08:46)
[2018-03-03] MEDS: FAMOTIDINE 20 MG TAB PO SCH ×2 (08:46→16:30)
[2018-03-03] MEDS: METOCLOPRAMIDE HCL 10 MG TAB PO SCH ×4 (08:46→21:30)
[2018-03-03] MEDS: INSULIN DETEMIR 100 UNIT/ML PEN SQ SCH ×2 (08:47→21:00)
[2018-03-03] MEDS: MAGNESIUM OXIDE 400 MG TAB PO SCH ×2 (08:47→17:00)
[2018-03-03] MEDS: ZINC SULFATE 220 MG CAP PO SCH ×2 (08:47→17:00)
[2018-03-03] MEDS: VANCOMYCIN 750MG/NS 150ML IVPB 150 ML IV SCH ×2 (08:47→21:30)
[2018-03-03] MEDS: ASCORBIC ACID 500 MG TAB PO SCH ×2 (08:47→17:00)
[2018-03-03] MEDS: LISINOPRIL 10 MG TAB PO SCH (08:47)
[2018-03-03] MEDS: OYST-CAL-D 500MG TABLET PO SCH ×2 (08:47→17:00)
[2018-03-03] MEDS: MULTIVITAMINS/MINERALS TAB PO SCH (08:47)
[2018-03-03 09:00] VITALS: BP 141/75
[2018-03-03] MEDS ORDERED: POTASSIUM CHLORIDE 20MEQ/100ML 200 ML IV ONE (11:30)
[2018-03-03] MEDS ORDERED: POTASSIUM CHLORIDE 20 MEQ TAB CR PO NR (11:45)
[2018-03-03 12:00] VITALS: BP 155/82
--- NOTE | 2018-03-03 13:37 | Diagnostic Imaging Report ---
PROCEDURE: A single AP view of the chest. COMPARISON: None. INDICATIONS: LEUKOCYTOSIS FINDINGS: Lines/tubes: None. Lungs: The lungs are well inflated and clear. There is no evidence of pneumonia or pulmonary edema. Pleura: There is no pleural effusion or pneumothorax. Heart and mediastinum: The heart and the mediastinum are unremarkable. Bones: No acute bony abnormality. IMPRESSION: 1. No acute cardiopulmonary disease. Dictated by: Hebert Houston M.D. on 03/03/2018 at 13:39 Electronically approved by: Hebert Houston M.D. on 03/03/2018 at 13:39
--- NOTE | 2018-03-03 15:23 | Progress Note ---
DATE: March 03, 2018 SUBJECTIVE: This is a 43-year-old male with a past medical history of diabetes, hypertension. He is postop day 4 left foot incision and drainage with partial 5th ray resection. He continues to relate minimal pain to his foot. Denies chills. Denies nausea and vomiting. He relates having decreased appetite, but relates having soup for dinner yesterday. The patient denies any fevers overnight. No other pedal complaints. OBJECTIVE VITAL SIGNS: Today, temperature is 97.9, heart rate 93, respiratory rate 20, blood pressure 136/77, pulse ox is 97% on room air. LOWER EXTREMITY PHYSICAL EXAMINATION VASCULAR: Dorsalis pedis and posterior tibial pulses are palpable at 1/4. Capillary refill time is delayed to digits 1, 2 and 3. They are cyanotic and discoloration with dusky changes noted to the digits. The foot is warm to the touch. NEUROLOGICAL: Sensation is absent to the left lower extremity. MUSCULOSKELETAL: Partial 5th ray resection to the left foot. Pain on palpation. DERMATOLOGICAL: Two large open postsurgical wounds are noted to the patient's left foot and one to the lateral aspect over the 3rd interspace. Upon removal of the dressing, again superficial epithelium was peeled away. There is a large blister formation along the digits and over the dorsal medial aspect of the patient's left foot. The wound beds of the postsurgical incision sites are fibrotic with necrotic tissue. The skin island in between both incisions has completely necrosed and will likely slough away. Erythema, edema and warmth still remain greater than 2 cm. No active drainage is noted at this time. LABS: White blood cell count is 18.4, hemoglobin 10.2, hematocrit 29.8, and platelet count is 338,000. Sodium 136, potassium 2.7, chloride 102, CO2 26, BUN 15, creatinine 1.5, glucose 183. ASSESSMENT 1. Left foot gas gangrene with cellulitis and osteomyelitis. 2. Postoperative day 3 left partial 5th ray resection. 3. Type 2 diabetes. 4. Peripheral neuropathy. 5. Uncontrolled hemoglobin A1c is 12. PLAN: The patient was seen and evaluated. Discussion condition and MRI results with the patient in detail. At this time, the wound appears slightly improved yesterday with blister formation. The skin island between the incisions has completely necrosed and will likely slough off. Dry necrotic tissue is present to both wound beds and blister formation noted to the digits with dusky discoloration noted to the digits. The patient is afebrile for 3 days. Leukocytosis still remains at 18 down from 19 yesterday. Will continue with IV antibiotics and local wound care. Betadine wet-to-dry. I discussed with the patient again that we are determining whether or not a flap will be viable to proceed with a transmetatarsal amputation versus a below knee amputation. Will discuss with the patient and the patient's family, and determine whether or not a foot amputation will be performed. The podiatry service will continue to monitor as an inpatient. Job#: [id number] LIN JIMENEZ
[2018-03-03 16:00] VITALS: BP 188/105
[2018-03-03 20:00] VITALS: BP 173/87
[2018-03-03] MEDS ORDERED: MORPHINE SULFATE 2 MG/ML SYR IV STA (22:32)
[2018-03-03] MEDS ORDERED: HYDROCODONE/APAP 10MG-325MG TAB PO PRN (22:35)
[2018-03-03] MEDS: HYDRALAZINE HCL 20 MG/ML VIAL IV PRN (23:51)
[2018-03-03] MEDS: ACETAMINOPHEN 325 MG TAB PO PRN (23:56)
[2018-03-04] VITALS (7 sets, daily range): BP systolic 154–185; BP diastolic 85–98
[2018-03-04] MEDS ORDERED: SODIUM CHLORIDE 0.9% 250ML 250 ML ONE (00:53)
[2018-03-04] MEDS: PIPER-TAZ 3.375 GM 100 ML IV SCH ×3 (06:00→22:29)
[2018-03-04] MEDS ORDERED: BACITRACIN 50,000 UNIT VIAL ONE (06:09)
[2018-03-04] MEDS ORDERED: BUPIVACAINE HCL 0.5% INJ 30 ML VIAL INJ ONE (06:17)
[2018-03-04 06:25] LABS: BASOPHILS # (AUTO) 0.1 (0.0-0.1); BASOPHILS % 0.4 % (0.0-1.0); EOSINOPHILS # (AUTO) 0.2 (0.0-0.4); EOSINOPHILS % 1.2 % (0.0-6.0); HEMATOCRIT 31.2 % (38.2-49.6); HEMOGLOBIN 10.5 g/dL (14.0-18.0); LYMPHOCYTES # (AUTO) 2.1 (1.0-3.2); LYMPHOCYTES % 12.3 % (18.0-39.1); MEAN CORPUSCULAR HEMOGLOBIN 28.4 pg (28-32); MEAN CORPUSCULAR HGB CONC 33.7 g/dL (31-35); MEAN CORPUSCULAR VOLUME 84.3 fL (81-99); MONOCYTES # (AUTO) 1.4 (0.2-0.8); MONOCYTES % 8.1 % (4.4-11.3); NEUTROPHILS # (AUTO) 12.3 (2.1-6.9); NEUTROPHILS % 71.9 % (38.7-80.0); PLATELET COUNT 382 x10e3/uL (140-360); RED CELL DISTRIBUTION WIDTH 14.2 % (11.7-14.4)
[2018-03-04 06:45] LABS: ANION GAP 13.7 mmol/L (8-16); BLOOD UREA NITROGEN 12 mg/dL (7-26); BUN/CREATININE RATIO 8 (6-25); CALCIUM 9.2 mg/dL (8.4-10.2); CARBON DIOXIDE 23 mmol/L (22-29); CHLORIDE 105 mmol/L (98-107); CREATININE, SERUM 1.47 mg/dL (0.72-1.25); EST GLOMERULAR FILTRATION RATE > 60 ML/MIN (60-); GLUCOSE 143 mg/dL (74-118); POTASSIUM 3.7 mmol/L (3.5-5.1); SODIUM 138 mmol/L (136-145)
[2018-03-04 07:39] LABS: FOLATE 12.5 ng/mL (7.0-15.4)
[2018-03-04 08:04] LABS: EOSINOPHILS % (MANUAL) 3 % (0-7); LYMPHOCYTES % (MANUAL) 17 % (19-48); METAMYELOCYTES % (MANUAL) 2 % (0-0); MONOCYTES % (MANUAL) 10 % (3.4-9.0); NEUTROPHILS % (MANUAL) 67 % (40-74)
[2018-03-04 08:05] LABS: PLATELET ESTIMATE ADEQUATE; PLATELET MORPHOLOGY COMMENT NORMAL; RBC MORPHOLOGY COMMENT NORMAL
[2018-03-04 08:12] LABS: FERRITIN 1613.32 ng/mL (21.81-274.66)
--- NOTE | 2018-03-04 08:26 | Operative Report ---
DATE OF PROCEDURE: March 04, 2018 PREOPERATIVE DIAGNOSIS: Left foot gas gangrene, osteomyelitis, cellulitis and abscess formation, left foot. PLANNED PROCEDURE: Left transmetatarsal amputation. ANESTHESIA: General with a postoperative block consisting of 15 mL of 0.5% Marcaine plain. HEMOSTASIS: Pneumatic thigh tourniquet set at 350 mmHg for a total time of approximately 35 minutes. MATERIALS: 3-0 nylon. One size-7 TLS drain. ESTIMATED BLOOD LOSS: 20 mL. PATHOLOGY: Left forefoot sent for pathology as well as microbiology. DETAILS OF PROCEDURE: Patient was seen in the preoperative waiting room where the correct procedure and site were identified. The patient was brought into the operating room and placed on the operating table in the supine position. General anesthesia was initiated at this time. A well-padded pneumatic tourniquet was placed about the patient's left thigh. The left foot, ankle and leg were then scrubbed, prepped and draped in the usual aseptic manner. The left foot, ankle and leg were exsanguinated with gravity, and the pneumatic thigh tourniquet was inflated to 350 mmHg for a total time of approximately 35 minutes. Attention was directed to the left foot where 2 large postsurgical wounds were noted to the left 5th metatarsal and the left 3rd interspace. There were large amounts of necrotic and devitalized tissue. A second abscess formation was noted medially along the mid shaft of the 1st metatarsal. At this time, converging semielliptical incisions were made along the medial aspect of the foot encompassing the lateral aspect of the foot, utilizing a larger plantar flap for closure purposes. It should be noted that along the medial incision there was noted to be a moderate amount of purulent drainage as well as necrotic and devitalized tissue. The wound was then debrided of the remainder of necrotic and devitalized tissue. At this time the decision was made to proceed with a transmetatarsal amputation. Five metatarsal osteotomies were performed with the sagittal saw to allow for proper closure. Utilizing a towel clamp, all the metatarsals 1 through 5 with digits 1 through 4 were disarticulated and amputated from the foot and placed off to the back table to be sent for gross specimen. Next, all the wound was again debrided of necrotic and devitalized tissue. The sesamoids were removed. Tendons were grasped, pulled distally, cut and allowed to retract proximally into the foot. The dorsomedial aspect of the flap was compromised and was debrided. However, if further tissue debridement was performed, there would be no wound left for closure. The wound was then flushed with copious amounts of sterile saline mixed with bacitracin. The free plantar flap was pulled dorsally and rotated laterally to allow for proper closure. The skin was reapproximated utilizing simple interrupted sutures of 3-0 nylon. Prior to wound closure, the one TLS drain was applied per mathematics department chair protocol. The wound was then dressed with Adaptic, Betadine, 4 x 4s, Kerlix and an Sheldon wrap. Patient tolerated the procedure and anesthesia well. Patient was transferred to the postoperative recovery room with vital signs stable and vascular status intact. Patient will be monitored there for a short period time before being readmitted to the floor for postoperative monitoring, pain control and IV antibiotics. The podiatry service will continue to monitor as an inpatient. Job#: [id number]
[2018-03-04] MEDS: LISINOPRIL 10 MG TAB PO SCH (08:57)
[2018-03-04] MEDS: INSULIN DETEMIR 100 UNIT/ML PEN SQ SCH ×2 (08:57→20:30)
[2018-03-04] MEDS: MAGNESIUM OXIDE 400 MG TAB PO SCH ×2 (08:57→17:04)
[2018-03-04] MEDS: MULTIVITAMINS/MINERALS TAB PO SCH (08:57)
[2018-03-04] MEDS: INSULIN REGULAR, HUMAN 100 UNIT/1 ML 3ML VIAL SQ SCH ×4 (08:57→20:30)
[2018-03-04] MEDS: FAMOTIDINE 20 MG TAB PO SCH ×2 (08:57→17:04)
[2018-03-04] MEDS: ASCORBIC ACID 500 MG TAB PO SCH ×2 (08:57→17:05)
[2018-03-04] MEDS: GLIPIZIDE 5 MG TAB PO SCH (08:57)
[2018-03-04] MEDS: METOCLOPRAMIDE HCL 10 MG TAB PO SCH ×4 (08:57→20:30)
[2018-03-04] MEDS: ZINC SULFATE 220 MG CAP PO SCH ×2 (08:57→17:05)
[2018-03-04] MEDS: OYST-CAL-D 500MG TABLET PO SCH ×2 (08:57→17:05)
[2018-03-04] MEDS: VANCOMYCIN 750MG/NS 150ML IVPB 150 ML IV SCH ×2 (10:18→20:30)
[2018-03-04] MEDS ORDERED: FENTANYL CITRATE/PF 100MCG/2 ML INJ ONE (13:41)
[2018-03-04] MEDS ORDERED: MIDAZOLAM HCL 2 MG/2 ML VIAL ONE (13:41)
[2018-03-04] MEDS ORDERED: POLYETHYLENE GLYCOL 3350 17 GM PACK PO PRN (15:15)
[2018-03-04] MEDS ORDERED: HYDROMORPHONE 1MG/1ML INJ IV ONE (15:15)
[2018-03-04] MEDS ORDERED: HYDROMORPHONE 1MG/1ML INJ IV PRN (15:15)
[2018-03-04] MEDS ORDERED: HYDROMORPHONE 2MG/ML INJ IV ONE (15:30)
[2018-03-04] MEDS: SODIUM CHLORIDE 0.9% 1000ML 1,000 ML IV SCH (15:46)
[2018-03-04] MEDS: DOCUSATE SODIUM 100 MG CAP PO SCH (17:04)
[2018-03-04] MEDS: HYDRALAZINE HCL 20 MG/ML VIAL IV PRN (17:35)
[2018-03-04] MEDS ORDERED: PROPOFOL IV EMULSION 10 MG/ML 20 ML VIAL ONE (17:47)
[2018-03-04] MEDS ORDERED: ONDANSETRON HCL INJ 2 MG/ML VIAL ONE (17:47)
[2018-03-04] MEDS ORDERED: SEVOFLURANE INHAL SOLN 250 ML PEN BTL ONE (17:47)
[2018-03-04] MEDS ORDERED: DEXAMETHASONE SOD PHOS INJ 4 MG/ML VIAL ONE (17:47)
[2018-03-04] MEDS ORDERED: LIDOCAINE HCL 2% LOCAL INJ 5 ML SDV VIAL INJ ONE (17:47)
[2018-03-04] MEDS: HYDROMORPHONE 2MG/ML INJ IV PRN (23:12)
[2018-03-05] VITALS (7 sets, daily range): BP systolic 129–188; BP diastolic 74–99
[2018-03-05] MEDS: HYDRALAZINE HCL 20 MG/ML VIAL IV PRN ×2 (04:35→20:07)
[2018-03-05] MEDS: SODIUM CHLORIDE 0.9% 1000ML 1,000 ML IV SCH (04:35)
[2018-03-05] MEDS: PIPER-TAZ 3.375 GM 100 ML IV SCH (05:33)
[2018-03-05] MEDS: INSULIN REGULAR, HUMAN 100 UNIT/1 ML 3ML VIAL SQ SCH ×4 (08:11→21:33)
[2018-03-05 08:32] LABS: BASOPHILS # (AUTO) 0.1 (0.0-0.1); BASOPHILS % 0.3 % (0.0-1.0); EOSINOPHILS # (AUTO) 0.1 (0.0-0.4); EOSINOPHILS % 0.8 % (0.0-6.0); HEMATOCRIT 30.8 % (38.2-49.6); HEMOGLOBIN 10.5 g/dL (14.0-18.0); LYMPHOCYTES # (AUTO) 2.1 (1.0-3.2); MEAN CORPUSCULAR HEMOGLOBIN 28.2 pg (28-32); MEAN CORPUSCULAR HGB CONC 34.1 g/dL (31-35); MEAN CORPUSCULAR VOLUME 82.6 fL (81-99); MONOCYTES # (AUTO) 1.1 (0.2-0.8); MONOCYTES % 6.1 % (4.4-11.3); NEUTROPHILS # (AUTO) 13.5 (2.1-6.9); NEUTROPHILS % 76.4 % (38.7-80.0); PLATELET COUNT 431 x10e3/uL (140-360); RED BLOOD COUNT 3.73 x10e6/uL (4.3-5.7); RED CELL DISTRIBUTION WIDTH 14.4 % (11.7-14.4)
[2018-03-05] MEDS: MAGNESIUM OXIDE 400 MG TAB PO SCH ×2 (08:56→17:11)
[2018-03-05] MEDS: METOCLOPRAMIDE HCL 10 MG TAB PO SCH ×4 (08:56→21:26)
[2018-03-05] MEDS: DOCUSATE SODIUM 100 MG CAP PO SCH ×2 (08:56→17:11)
[2018-03-05] MEDS: OYST-CAL-D 500MG TABLET PO SCH ×2 (08:56→17:11)
[2018-03-05] MEDS: MULTIVITAMINS/MINERALS TAB PO SCH (08:56)
[2018-03-05] MEDS: AMLODIPINE BESYLATE 10 MG TAB PO SCH ×2 (08:56→09:00)
[2018-03-05] MEDS: GLIPIZIDE 5 MG TAB PO SCH (08:56)
[2018-03-05] MEDS: FAMOTIDINE 20 MG TAB PO SCH ×2 (08:56→17:11)
[2018-03-05] MEDS: LISINOPRIL 10 MG TAB PO SCH (08:57)
[2018-03-05] MEDS: ZINC SULFATE 220 MG CAP PO SCH ×2 (08:57→17:11)
[2018-03-05] MEDS: INSULIN DETEMIR 100 UNIT/ML PEN SQ SCH ×2 (08:57→21:00)
[2018-03-05] MEDS: HYDROMORPHONE 2MG/ML INJ IV PRN ×4 (08:57→23:15)
[2018-03-05] MEDS: ASCORBIC ACID 500 MG TAB PO SCH ×2 (08:57→17:11)
[2018-03-05 09:04] LABS: ANION GAP 13.1 mmol/L (8-16); BLOOD UREA NITROGEN 14 mg/dL (7-26); BUN/CREATININE RATIO 9 (6-25); CARBON DIOXIDE 25 mmol/L (22-29); CHLORIDE 101 mmol/L (98-107); CREATININE, SERUM 1.52 mg/dL (0.72-1.25); EST GLOMERULAR FILTRATION RATE > 60 ML/MIN (60-); GLUCOSE 201 mg/dL (74-118); PHOSPHORUS 3.2 MG/DL (2.3-4.7); POTASSIUM 3.1 mmol/L (3.5-5.1); SODIUM 136 mmol/L (136-145)
[2018-03-05 09:14] LABS: MAGNESIUM 1.5 MG/DL (1.3-2.1)
[2018-03-05 09:41] LABS: BAND NEUTROPHILS % (MANUAL) 2 %; LYMPHOCYTES % (MANUAL) 5 % (19-48); MONOCYTES % (MANUAL) 1 % (3.4-9.0); NEUTROPHILS % (MANUAL) 92 % (40-74)
[2018-03-05 09:42] LABS: PLATELET ESTIMATE MARKEDLY INCREASED; PLATELET MORPHOLOGY COMMENT FEW LARGE; RBC MORPHOLOGY COMMENT NORMAL
[2018-03-05] MEDS: VANCOMYCIN 750MG/NS 150ML IVPB 150 ML IV SCH (10:34)
[2018-03-05] MEDS: CEFTRIAXONE SOD 2 GM VIAL IV SCH (12:26)
--- NOTE | 2018-03-05 14:22 | Progress Note ---
DATE: March 05, 2018 SUBJECTIVE: This is a 43-year-old male with a past medical history of diabetes and hypertension, who is postoperative day #1 left foot transmetatarsal amputation and 5 days status post left foot partial 5th ray resection for gas gangrene. He relates to having some soreness to his left foot. He currently denies nausea, vomiting, fever, chills, chest pain or shortness of breath. He relates his appetite is slightly increasing at this time. No acute issues overnight. OBJECTIVE VITAL SIGNS: Today, temperature is 97.5, heart rate 99, respiratory rate 18, blood pressure 129/74, pulse ox is 98% on room air. PROBLEM-FOCUSED LOWER EXTREMITY PHYSICAL EXAMINATION: Left foot bandage is clean, dry and intact. There is minimal drainage noted to the TLS drain. No evidence of erythema or streaking lymphangitis above the bandage. Will leave the bandage intact for postoperative day #1. LABS: White blood cell count 17.6, hemoglobin 10.5, hematocrit 30.8, platelet count 431. MICROBIOLOGY: Group B strep. ASSESSMENT 1. Left foot gas gangrene with cellulitis and osteomyelitis, postoperative day #1 left transmetatarsal amputation. 2. Type-2 diabetes. 3. Peripheral neuropathy. 4. Hemoglobin A1c is 12. PLAN: The patient was seen and evaluated. Discussed condition and treatment options with the patient in detail. At this time, there was no strikethrough noted to the bandage. There was noticed to be very minimal drainage to the TLS drain. The TLS drain was pulled at this time, and we left the bandage intact. Discussed with the patient we will change the dressing tomorrow to evaluate viability of the left foot wound and to monitor the leukocytosis. The patient has been afebrile for the past 2 days. The patient is to continue to be 100% nonweightbearing to the left lower extremity. Podiatry service will continue to monitor as an inpatient. Job#: [id number]
--- NOTE | 2018-03-05 16:28 | Consultation ---
DATE OF CONSULTATION: March 05, 2018 REASON FOR CONSULTATION: Infection of the left foot. HISTORY OF PRESENT ILLNESS: This patient is a very pleasant 43-year-old -[place] male who has history of diabetes mellitus and hypertension. He comes in with redness and swelling of the left foot, which he had for a few days which he came here for. Patient denies any history of trauma. The patient comes in. He was seen by podiatry and underwent debridement yesterday. Infectious disease was consulted to make recommendation on antibiotic. It was noted that he had a high white count. However, the patient is doing quite well. He has no complaints. REVIEW OF SYSTEMS GENERAL: He is feeling well. HEENT: Negative. PULMONARY: Negative. CARDIAC: Negative. : Negative. SKIN: There is no rash. JOINTS: Negative. GI: Negative. PAST MEDICAL HISTORY: Hypertension, diabetes mellitus for years. Status post pericardial window in 2010. FAMILY HISTORY: There is no smoking, drug abuse, or alcohol abuse. FAMILY HISTORY: Significant for diabetes mellitus and hypertension. HOME MEDICATIONS: Glyburide 6 mg, lisinopril 10, mg and insulin. LABORATORY DATA: Reviewed. His cultures from the wound showing Streptococcus agalactiae. His white count on admission was 21, today 17.6, hemoglobin 10, and hematocrit 30. Sodium 136, potassium 3.1, and creatinine 1.52. PHYSICAL EXAMINATION GENERAL: He is currently alert and oriented, does not seem to be in acute distress. VITALS: Stable, currently afebrile. HEENT: He does not appear icteric. Normocephalic. NECK: Supple. No JVD. No lymphadenopathy. No thyromegaly. CHEST: Clear bilateral. COR: S1 and S2. No S3, S4, or murmur. ABDOMEN: Soft. Bowel sounds are present. No tenderness. EXTREMITIES: No edema. IMPRESSION AND PLAN 1. Infection of the foot, status post debridement. Patient underwent transmetatarsal amputation of the left foot. He is growing Streptococcus agalactiae group B. I would recommend to put him on Rocephin 2 gram q. 24 hours for the time being. Can probably switch to oral Levaquin once he is ready to be discharged. 2. Chronic kidney disease. 3. Hypertension. 4. We will follow with you. Job#: [id number] LEROY
[2018-03-06] VITALS (7 sets, daily range): BP systolic 132–177; BP diastolic 86–98
[2018-03-06] MEDS: HYDRALAZINE HCL 20 MG/ML VIAL IV PRN ×2 (05:44→21:29)
[2018-03-06] MEDS: HYDROMORPHONE 2MG/ML INJ IV PRN ×4 (05:51→19:17)
[2018-03-06 07:34] LABS: BASOPHILS # (AUTO) 0.1 (0.0-0.1); BASOPHILS % 0.4 % (0.0-1.0); EOSINOPHILS # (AUTO) 0.3 (0.0-0.4); EOSINOPHILS % 1.7 % (0.0-6.0); HEMATOCRIT 29.9 % (38.2-49.6); HEMOGLOBIN 10.2 g/dL (14.0-18.0); MEAN CORPUSCULAR HEMOGLOBIN 28.2 pg (28-32); MEAN CORPUSCULAR HGB CONC 34.1 g/dL (31-35); MEAN CORPUSCULAR VOLUME 82.6 fL (81-99); MONOCYTES % 6.9 % (4.4-11.3); NEUTROPHILS # (AUTO) 11.3 (2.1-6.9); NEUTROPHILS % 75.1 % (38.7-80.0); PLATELET COUNT 477 x10e3/uL (140-360); RED BLOOD COUNT 3.62 x10e6/uL (4.3-5.7); RED CELL DISTRIBUTION WIDTH 14.4 % (11.7-14.4)
[2018-03-06 08:04] LABS: ANION GAP 10.2 mmol/L (8-16); BLOOD UREA NITROGEN 14 mg/dL (7-26); BUN/CREATININE RATIO 9 (6-25); CALCIUM 9.2 mg/dL (8.4-10.2); CARBON DIOXIDE 29 mmol/L (22-29); CHLORIDE 103 mmol/L (98-107); CREATININE, SERUM 1.52 mg/dL (0.72-1.25); EST GLOMERULAR FILTRATION RATE > 60 ML/MIN (60-); GLUCOSE 229 mg/dL (74-118); MAGNESIUM 1.7 MG/DL (1.3-2.1); POTASSIUM 3.2 mmol/L (3.5-5.1); SODIUM 139 mmol/L (136-145)
[2018-03-06] MEDS: INSULIN REGULAR, HUMAN 100 UNIT/1 ML 3ML VIAL SQ SCH ×4 (08:14→21:28)
[2018-03-06] MEDS: OYST-CAL-D 500MG TABLET PO SCH ×2 (08:14→17:07)
[2018-03-06] MEDS: INSULIN DETEMIR 100 UNIT/ML PEN SQ SCH ×2 (08:14→21:28)
[2018-03-06] MEDS: METOCLOPRAMIDE HCL 10 MG TAB PO SCH ×4 (08:14→21:28)
[2018-03-06] MEDS: ASCORBIC ACID 500 MG TAB PO SCH ×2 (08:14→17:07)
[2018-03-06] MEDS: LISINOPRIL 10 MG TAB PO SCH (08:14)
[2018-03-06] MEDS: MULTIVITAMINS/MINERALS TAB PO SCH (08:14)
[2018-03-06] MEDS: MAGNESIUM OXIDE 400 MG TAB PO SCH ×2 (08:14→17:07)
[2018-03-06] MEDS: GLIPIZIDE 5 MG TAB PO SCH (08:14)
[2018-03-06] MEDS: DOCUSATE SODIUM 100 MG CAP PO SCH ×2 (08:14→17:07)
[2018-03-06] MEDS: FAMOTIDINE 20 MG TAB PO SCH ×2 (08:14→17:06)
[2018-03-06] MEDS: ZINC SULFATE 220 MG CAP PO SCH ×2 (08:14→17:07)
[2018-03-06] MEDS: AMLODIPINE BESYLATE 10 MG TAB PO SCH (08:14)
[2018-03-06] MEDS ORDERED: NIFEDIPINE CR 30 MG TAB PO SCH (11:30)
[2018-03-06] MEDS ORDERED: POTASSIUM CHLORIDE 20 MEQ TAB CR PO ONE (11:30)
[2018-03-06] MEDS ORDERED: LISINOPRIL 10 MG TAB PO ONE (11:45)
[2018-03-06] MEDS: CEFTRIAXONE SOD 2 GM VIAL IV SCH (12:28)
[2018-03-06 13:01] LABS: BAND NEUTROPHILS % (MANUAL) 2 %; EOSINOPHILS % (MANUAL) 2 % (0-7); LYMPHOCYTES % (MANUAL) 11 % (19-48); MONOCYTES % (MANUAL) 6 % (3.4-9.0); NEUTROPHILS % (MANUAL) 79 % (40-74)
[2018-03-06 13:02] LABS: PLATELET ESTIMATE ADEQUATE; PLATELET MORPHOLOGY COMMENT NORMAL; RBC MORPHOLOGY COMMENT NORMAL
--- NOTE | 2018-03-06 14:55 | Progress Note ---
DATE: March 06, 2018 SUBJECTIVE: This is a 43-year-old male with a past medical history of diabetes and hypertension, who is postoperative day #2 left transmetatarsal amputation and 6 days status post left foot partial 5th ray resection for gas gangrene. The patient relates to having some tenderness to his left foot. He currently denies nausea, vomiting, fever, chills, chest pain or shortness of breath. No acute issues overnight. OBJECTIVE VITAL SIGNS: Today, temperature is 97.3, heart rate 90, respiratory rate 20, blood pressure 159/91, pulse ox is 98% on room air. PROBLEM-FOCUSED LOWER EXTREMITY PHYSICAL EXAMINATION VASCULAR: Dorsalis pedis and posterior tibial pulses are faintly palpable. Capillary refill time is approximately 3 to 4 seconds to the distal stump site. Mild erythema is noted to the medial aspect of the incision site. Minimal warmth. Mild edema. NEUROLOGIC: Sensation is absent to light touch bilaterally. MUSCULOSKELETAL: Left transmetatarsal amputation. DERMATOLOGICAL: Incision site is noted to the patient's left foot. There has been slight wound dehiscence of 1 stitch on the lateral aspect of the patient's left foot. There was strikethrough noted to the bandage with maceration noted medially and laterally. LABS: White blood cell count is 15, hemoglobin 10.2, hematocrit 29.2, platelet count 477. Sodium 139, potassium 3.2, chloride 103, CO2 29, BUN 14, creatinine 1.5, glucose 240. ASSESSMENT 1. Left foot gas gangrene with cellulitis and osteomyelitis, postoperative day #2 left transmetatarsal amputation. 2. Type-2 diabetes with peripheral neuropathy. Hemoglobin A1c is 12. PLAN: The patient was seen and evaluated. Discussed condition and treatment options with the patient in detail. At this time, when the dressing was changed, due to the maceration noted medially and laterally, Betadine wet-to-dry dressing change was performed. Continue IV antibiotics per infectious disease. The patient is to continue to be 100% nonweightbearing to the left lower extremity. Podiatry service will continue to monitor. Job#: [id number]
--- NOTE | 2018-03-06 19:40 | Operative Report ---
Dictation was made in Error. Job#: [id number] GE BARBARA
[2018-03-06] MEDS: HYDROCODONE/APAP 10MG-325MG TAB PO PRN (21:29)
[2018-03-07] VITALS (9 sets, daily range): BP systolic 157–189; BP diastolic 72–94
[2018-03-07] MEDS: HYDROMORPHONE 2MG/ML INJ IV PRN ×4 (00:29→14:57)
[2018-03-07 06:51] LABS: BASOPHILS % 0.3 % (0.0-1.0); EOSINOPHILS # (AUTO) 0.3 (0.0-0.4); EOSINOPHILS % 2.2 % (0.0-6.0); HEMATOCRIT 28.9 % (38.2-49.6); HEMOGLOBIN 9.6 g/dL (14.0-18.0); LYMPHOCYTES # (AUTO) 1.5 (1.0-3.2); LYMPHOCYTES % 12.4 % (18.0-39.1); MEAN CORPUSCULAR HEMOGLOBIN 28.2 pg (28-32); MEAN CORPUSCULAR HGB CONC 33.2 g/dL (31-35); MEAN CORPUSCULAR VOLUME 84.8 fL (81-99); MONOCYTES # (AUTO) 0.8 (0.2-0.8); MONOCYTES % 6.9 % (4.4-11.3); NEUTROPHILS % 75.8 % (38.7-80.0); PLATELET COUNT 465 x10e3/uL (140-360); RED BLOOD COUNT 3.41 x10e6/uL (4.3-5.7); RED CELL DISTRIBUTION WIDTH 14.4 % (11.7-14.4)
[2018-03-07 07:14] LABS: ANION GAP 13.9 mmol/L (8-16); BLOOD UREA NITROGEN 10 mg/dL (7-26); BUN/CREATININE RATIO 7 (6-25); CALCIUM 9.1 mg/dL (8.4-10.2); CARBON DIOXIDE 27 mmol/L (22-29); CHLORIDE 101 mmol/L (98-107); CREATININE, SERUM 1.47 mg/dL (0.72-1.25); EST GLOMERULAR FILTRATION RATE > 60 ML/MIN (60-); GLUCOSE 319 mg/dL (74-118); MAGNESIUM 1.3 MG/DL (1.3-2.1); SODIUM 139 mmol/L (136-145)
[2018-03-07 07:17] LABS: POTASSIUM 2.9 mmol/L (3.5-5.1)
[2018-03-07] MEDS: OYST-CAL-D 500MG TABLET PO SCH ×2 (08:14→17:04)
[2018-03-07] MEDS: INSULIN REGULAR, HUMAN 100 UNIT/1 ML 3ML VIAL SQ SCH ×4 (08:14→20:27)
[2018-03-07] MEDS: ZINC SULFATE 220 MG CAP PO SCH ×2 (08:14→17:04)
[2018-03-07] MEDS: ASCORBIC ACID 500 MG TAB PO SCH ×2 (08:14→17:04)
[2018-03-07] MEDS: DOCUSATE SODIUM 100 MG CAP PO SCH ×2 (08:14→17:00)
[2018-03-07] MEDS: GLIPIZIDE 5 MG TAB PO SCH (08:14)
[2018-03-07] MEDS: INSULIN DETEMIR 100 UNIT/ML PEN SQ SCH ×2 (08:14→20:27)
[2018-03-07] MEDS: FAMOTIDINE 20 MG TAB PO SCH ×2 (08:14→17:04)
[2018-03-07] MEDS: POTASSIUM CHLORIDE 20 MEQ TAB CR PO SCH ×2 (08:14→10:18)
[2018-03-07] MEDS: MULTIVITAMINS/MINERALS TAB PO SCH (08:14)
[2018-03-07] MEDS: METOCLOPRAMIDE HCL 10 MG TAB PO SCH ×4 (08:14→20:27)
[2018-03-07] MEDS: MAGNESIUM OXIDE 400 MG TAB PO SCH ×2 (08:14→17:04)
--- NOTE | 2018-03-07 08:47 | Progress Note ---
DATE: March 07, 2018 SUBJECTIVE: This is a 43-year-old male with past medical history of type 2 diabetes, hypertension, who is postoperative day 3 left transmetatarsal amputation and 7-day status post partial fifth ray resection for gas gangrene. The patient relates improvement in tenderness to his left foot. Currently denies nausea, vomiting, fever, chills, chest pain, or shortness of breath. No acute issues overnight. OBJECTIVE: VITAL SIGNS: Today, temperature 96.8, heart rate 94, respiratory rate 18, blood pressure 158/74, pulse ox is 95% on room air. PROBLEM-FOCUSED LOWER EXTREMITY PHYSICAL EXAMINATION: VASCULAR: Dorsalis pedis and posterior tibial pulses are faintly palpable. Capillary refill time is approximately 3 to 4 seconds to the distal stump site. Mild erythema and edema is noted to the medial aspect of the incision site with minimal warmth. NEUROLOGICAL: Sensation is absent to light touch bilateral. MUSCULOSKELETAL: Left transmetatarsal amputation. DERMATOLOGICAL: Incision site is noted to the patient's left foot. There has been slight wound dehiscence laterally with maceration noted to the lateral aspect of the incision site as well as the medial aspect of the incision site. The central portion of the incision is clean, dry, and intact. Strikethrough was noted to the bandage medially and laterally. LABS: White blood cell count today 11.8, hemoglobin 9.6, hematocrit 28.9, platelet count 465,000. Sodium 139, potassium 2.9, chloride 101, CO2 27, BUN 10, creatinine 1.47, glucose 319. ASSESSMENT: 1. Left foot gas gangrene with cellulitis and osteomyelitis, postoperative day 3 left transmetatarsal amputation. 2. Type 2 diabetes with peripheral neuropathy. Hemoglobin A1c is 12. PLAN: Patient was seen and evaluated. Discussed condition and treatment options with patient in detail. The dressing was changed today with Betadine wet-to-dry to help improve maceration. Infectious disease changed the antibiotics to IV Rocephin 2 g 24 hours. The patient is to continue to be 100% nonweightbearing to the left lower extremity. If leukocytosis continues to trend down and patient continues to be afebrile, will plan for discharge in the next 1 to 2 days on oral antibiotics and wound care. The podiatry service will continue to monitor as an inpatient. Job#: [id number]
[2018-03-07] MEDS ORDERED: LISINOPRIL 10 MG TAB PO SCH (09:00)
[2018-03-07] MEDS ORDERED: LISINOPRIL 20 MG TAB PO SCH (09:00)
[2018-03-07] MEDS: NIFEDIPINE CR 30 MG TAB PO SCH (12:18)
[2018-03-07] MEDS: CEFTRIAXONE SOD 2 GM VIAL IV SCH (14:57)
[2018-03-07] MEDS: HYDRALAZINE HCL 20 MG/ML VIAL IV PRN (17:00)
[2018-03-07] MEDS: HYDROCODONE/APAP 10MG-325MG TAB PO PRN (17:08)
[2018-03-07] MEDS ORDERED: HYDROCODONE/APAP 10MG-325MG TAB PO PRN (19:15)
[2018-03-07] MEDS: MORPHINE SULFATE 2 MG/ML SYR IV PRN (20:30)
[2018-03-08] MEDS: MORPHINE SULFATE 2 MG/ML SYR IV PRN (05:01)
[2018-03-08] MEDS: HYDRALAZINE HCL 20 MG/ML VIAL IV PRN ×2 (05:55→05:58)
[2018-03-08 05:56] VITALS: BP 180/90
[2018-03-08 06:47] LABS: BASOPHILS # (AUTO) 0.1 (0.0-0.1); BASOPHILS % 0.4 % (0.0-1.0); EOSINOPHILS # (AUTO) 0.2 (0.0-0.4); EOSINOPHILS % 1.8 % (0.0-6.0); HEMATOCRIT 29.9 % (38.2-49.6); HEMOGLOBIN 9.9 g/dL (14.0-18.0); LYMPHOCYTES # (AUTO) 1.7 (1.0-3.2); LYMPHOCYTES % 15.1 % (18.0-39.1); MEAN CORPUSCULAR HGB CONC 33.1 g/dL (31-35); MEAN CORPUSCULAR VOLUME 84.7 fL (81-99); MONOCYTES # (AUTO) 0.8 (0.2-0.8); MONOCYTES % 6.8 % (4.4-11.3); NEUTROPHILS # (AUTO) 8.3 (2.1-6.9); NEUTROPHILS % 74.2 % (38.7-80.0); PLATELET COUNT 519 x10e3/uL (140-360); RED BLOOD COUNT 3.53 x10e6/uL (4.3-5.7); RED CELL DISTRIBUTION WIDTH 14.4 % (11.7-14.4)
[2018-03-08 07:22] LABS: ANION GAP 13.3 mmol/L (8-16); BLOOD UREA NITROGEN 9 mg/dL (7-26); BUN/CREATININE RATIO 7 (6-25); CALCIUM 9.5 mg/dL (8.4-10.2); CARBON DIOXIDE 29 mmol/L (22-29); CHLORIDE 101 mmol/L (98-107); CREATININE, SERUM 1.34 mg/dL (0.72-1.25); EST GLOMERULAR FILTRATION RATE > 60 ML/MIN (60-); GLUCOSE 246 mg/dL (74-118); MAGNESIUM 1.4 MG/DL (1.3-2.1); POTASSIUM 3.3 mmol/L (3.5-5.1); SODIUM 140 mmol/L (136-145)
[2018-03-08 07:50] VITALS: BP 174/74
[2018-03-08 08:00] VITALS: BP_SYST 176; BP_SYST 187; BP_DIAS 102; BP_DIAS 97
--- NOTE | 2018-03-08 09:36 | Progress Note ---
DATE: March 08, 2018 SUBJECTIVE: This is a 43-year-old male with a past medical history of type 2 diabetes, hypertension, who is postoperative day 4 of left transmetatarsal amputation, postop day 8, status post 5th ray resection for gas gangrene. The patient relates improvement to the tenderness to the left foot. Currently, denies nausea, vomiting, fever, chills, chest pain, or shortness of breath. No acute issues overnight. OBJECTIVE VITALS: Today, 97, heart rate 112, respiratory rate 18, blood pressure 187/102, pulse ox 97% on room air. LOWER EXTREMITY PHYSICAL EXAMINATION VASCULAR: Dorsalis pedis and posterior tibial pulses are faintly palpable. Capillary refill time is 3-4 seconds to the distal stump site. Mild erythema and edema is noted to the medial and lateral aspect of the incision sites. Minimal warmth. NEUROLOGICAL: Sensation is absent to light touch bilateral. MUSCULOSKELETAL: Left transmetatarsal amputation. DERMATOLOGICAL: Incision site is noted to the patient's left foot. Slight wound dehiscence is noted to the medial and lateral aspect of the incision sites with maceration. The central portion of the incision site is clean, dry and intact. Strikethrough is noted to the bandage medial and laterally. LABS: White blood cell count is 11.13, hemoglobin 9.9, hematocrit 29.9, and platelet count is 519,000. Sodium 140, potassium 3.3, chloride 101, CO2 29, BUN 9, creatinine 1.34, glucose 246. ASSESSMENT 1. Left foot gas gangrene with cellulitis and osteomyelitis: Postoperative day 4 left transmetatarsal amputation. 2. Type 2 diabetes and peripheral neuropathy: Hemoglobin A1c is 12. PLAN: The patient was seen and evaluated. Discussed condition and treatment options with the patient in detail. Dressing was changed today with Betadine wet-to-dry to help improve maceration. The patient is afebrile. Leukocytosis appears to have resolved. The patient is stable to be discharged today on oral antibiotics per infectious disease. The patient is to be nonweightbearing to the left lower extremity. The patient relates that he has a knee scooter at home. The patient is self-pay and has no benefits for a prison facility, long-term acute care or home health. The patient will be taught how to do dressing changes at home. Is to follow up at a wound care center at [facility] where he was a prior patient. If the patient is unable to follow up there, then he may follow up in the office. The podiatry service will continue to monitor. Job#: [id number] LIN
[2018-03-08] MEDS: FAMOTIDINE 20 MG TAB PO SCH ×2 (09:58→16:59)
[2018-03-08] MEDS: INSULIN DETEMIR 100 UNIT/ML PEN SQ SCH (09:58)
[2018-03-08] MEDS: MAGNESIUM OXIDE 400 MG TAB PO SCH ×2 (09:58→16:59)
[2018-03-08] MEDS: ASCORBIC ACID 500 MG TAB PO SCH ×2 (09:58→16:59)
[2018-03-08] MEDS: ZINC SULFATE 220 MG CAP PO SCH ×2 (09:58→16:59)
[2018-03-08] MEDS: GLIPIZIDE 5 MG TAB PO SCH (09:58)
[2018-03-08] MEDS: OYST-CAL-D 500MG TABLET PO SCH ×2 (09:58→16:59)
[2018-03-08] MEDS: DOCUSATE SODIUM 100 MG CAP PO SCH ×2 (09:58→16:59)
[2018-03-08] MEDS: MULTIVITAMINS/MINERALS TAB PO SCH (09:58)
[2018-03-08] MEDS: NIFEDIPINE CR 30 MG TAB PO SCH (09:58)
[2018-03-08] MEDS: METOCLOPRAMIDE HCL 10 MG TAB PO SCH ×3 (09:58→16:59)
[2018-03-08] MEDS: INSULIN REGULAR, HUMAN 100 UNIT/1 ML 3ML VIAL SQ SCH ×3 (10:01→17:00)
[2018-03-08] MEDS ORDERED: POTASSIUM CHLORIDE 20 MEQ TAB CR PO STA (12:19)
[2018-03-08] MEDS ORDERED: NIFEDIPINE CR 30 MG TAB PO SCH (12:30)
[2018-03-08] MEDS ORDERED: Multivitamins/Minerals PO (12:38)
[2018-03-08] MEDS ORDERED: ASCORBIC ACID500 MG PO (12:38)
[2018-03-08] MEDS ORDERED: METOCLOPRAMIDE10 MG PO (12:38)
[2018-03-08] MEDS ORDERED: LEVEMIR100 UNIT/1 SC (12:38)
[2018-03-08] MEDS ORDERED: ZINC SULFATE220 M1 PO (12:38)
[2018-03-08] MEDS ORDERED: GLIPIZIDE5 MG PO (12:38)
[2018-03-08] MEDS ORDERED: NIFEDIPINE ER30 M1 PO (12:38)
[2018-03-08] MEDS ORDERED: MAGNESIUM OXID400 MG PO (12:38)
[2018-03-08] MEDS ORDERED: CIPRO500 MG PO (12:38)
[2018-03-08] MEDS ORDERED: DOXYCYCLINE HY100 MG PO (12:38)
[2018-03-08] MEDS ORDERED: Calcium Carbonate PO (12:38)
[2018-03-08] MEDS ORDERED: HYDROCODONE/APAP 7.5MG-325MG 1 EA TAB PO PRN (12:45)
[2018-03-08] MEDS ORDERED: TYLENOL WITH C1 EACH PO (12:46)
[2018-03-08] MEDS: CEFTRIAXONE SOD 2 GM VIAL IV SCH (13:32)
[2018-03-08 16:00] VITALS: BP 133/85
[2018-03-08] MEDS ORDERED: MORPHINE SULFATE 2 MG/ML SYR IV PRN (18:00)
[2018-03-08] MEDS ORDERED: INSULIN DETEMIR 100 UNIT/ML PEN SQ SCH (21:00)
--- NOTE | 2018-03-08 22:22 | Discharge Summary ---
ADMISSION DIAGNOSES: 1. Cellulitis/abscess of the left foot with severe sepsis. 2. Acute kidney injury versus chronic kidney disease. 3. Diabetic foot ulcer on the left lateral forefoot. 4. Hypertension. 5. Type 2 diabetes. DISCHARGE DIAGNOSES: 1. Cellulitis/abscess of left foot with severe sepsis. 2. Acute kidney injury versus chronic kidney disease. 3. Diabetic foot ulcer on the left lateral forefoot. 4. Hypertension. 5. Type 2 diabetes. 6. Ruled out gastrointestinal bleed. 7. Ruled out Clostridium difficile. 8. Hypokalemia. 9. Ruled out osteomyelitis. HISTORY: Patient has a history of hypertension and diabetes. In 2010, the patient had a pericardial window done for acute pericarditis. HOSPITAL COURSE: A 43-year-old male presents with swelling and erythema of the left lateral foot that has been ongoing for several days. Patient said he stepped on something that caused a cut on the foot and subsequently became infected. On admission, patient was started on IV vanco and Zosyn. Podiatry was consulted. For the kidney injury, patient received IV fluids. Throughout hospitalization, his kidneys continued to improve. For hypertension, his lisinopril was eventually discontinued and he was started on a calcium channel deonte due to his kidney injury. Type 2 diabetes, his Levemir has to be increased due to his hyperglycemia, as well as his glyburide. On February 27, the patient had I and D on the dorsolateral and plantar lateral aspects of the left foot, also on the dorsum of the left foot over the second, third, and fourth digits, amputation of the fifth digit and distal one-third of the fifth metatarsal. Patient's white count trended down, but very slowly, so per podiatry, the patient then had a left TMA on March 04 due to nonhealing wound . Infectious disease was also consulted who put the patient on Rocephin 2 g every 24 hours. Patient's wound improved greatly after the TMA. The leukocytosis has resolved. Patient's daughter will be taught how to change the dressing and the patient has also been explained to return to [facility] outpatient where he went previously for another wound that he has. He will also follow up with podiatry. X-ray of the foot showed questionable osteomyelitis of the proximal fifth toe, but the MRI ruled out OM. Chest x-ray was negative. Blood cultures negative. Urine culture negative. Wound culture showed strep group B. On day of discharge, patient was afebrile. He was hypertensive, but I increased his nifedipine, his systolic dropped to 130. He is stable to go home today and follow up with podiatry as discussed. On day of discharge, his sodium was 140, potassium 3.3 which was repleted prior to discharge. His creatinine was 1.34. WBC was 11.13, hemoglobin 9.9, hematocrit 29.9, platelet of 519,000. Patient will follow up with podiatry and infectious disease as well as primary care in about 2 weeks. Patient is very excited and ready to go home. Dictated by Emma Vee NP YVROSE BAL MD Job#: [id number]
[2018-03-09] MEDS ORDERED: NIFEDIPINE CR 30 MG TAB PO SCH (09:00)
== END 2018-03-08 18:44 | disposition home health service (06) | DRG 853 ==
LOC: ER 00:05 → ERHOLD 02:13 → MED/SURG2 03:46
PROVIDERS: ADMIT Internal Medicine; ATTEND Internal Medicine
PROC: 0JBR0ZZ Excision of Left Foot Subcutaneous Tissue and Fascia, Open Approach (ICD-10-PCS; 2018-02-27)
PROC: 0Y6Y0Z3 Detachment at Left 5th Toe, Low, Open Approach (ICD-10-PCS; 2018-02-27)
PROC: 0Y6N0Z9 Detachment at Left Foot, Partial 1st Ray, Open Approach (ICD-10-PCS; 2018-03-04)
PROC: 0Y6N0ZB Detachment at Left Foot, Partial 2nd Ray, Open Approach (ICD-10-PCS; 2018-03-04)
PROC: 0Y6N0ZC Detachment at Left Foot, Partial 3rd Ray, Open Approach (ICD-10-PCS; 2018-03-04)
PROC: 0Y6N0ZD Detachment at Left Foot, Partial 4th Ray, Open Approach (ICD-10-PCS; 2018-03-04)
PROC: 0Y6N0ZF Detachment at Left Foot, Partial 5th Ray, Open Approach (ICD-10-PCS; principal; 2018-03-04 07:00)
DX: A41.9 Sepsis, unspecified organism (principal); A48.0 Gas gangrene; N17.9 Acute kidney failure, unspecified; E87.1 Hypo-osmolality and hyponatremia; E11.52 Type 2 diabetes mellitus with diabetic peripheral angiopathy with gangrene; M86.9 Osteomyelitis, unspecified; R65.20 Severe sepsis without septic shock; E11.621 Type 2 diabetes mellitus with foot ulcer; L97.529 Non-pressure chronic ulcer of other part of left foot with unspecified severity; B95.1 Streptococcus, group B, as the cause of diseases classified elsewhere; E11.22 Type 2 diabetes mellitus with diabetic chronic kidney disease; E87.6 Hypokalemia; E66.9 Obesity, unspecified; Z68.34 Body mass index [BMI] 34.0-34.9, adult; E11.69 Type 2 diabetes mellitus with other specified complication; Z79.4 Long term (current) use of insulin; T87.81 Dehiscence of amputation stump; I12.9 Hypertensive chronic kidney disease with stage 1 through stage 4 chronic kidney disease, or unspecified chronic kidney disease; N18.9 Chronic kidney disease, unspecified
CPT/HCPCS: 36415; 71045; 80048; 80053; 80061; 80202; 82270; 82607; 82728; 82746; 82948; 83036; 83540; 83735; 84100; 84443; 84466; 85025; 87040; 87071; 87075; 87086; 87205; 87493; 88305; 88307; 88311; 93005; 93306; 93925; 96367; 96372; 96374; 96376; 99284; J0360; J0696; J1100; J1170; J2001; J2250; J2270; J2405; J2543; J2765; J3370; J3480; J7030; J7050

== ENCOUNTER 2018-05-10 19:19 | Inpatient (IN) | payer SELFPAY ==
[~2018-05-10] VITALS: Ht 193 cm; Wt 122.0 kg
[~2018-05-10 19:19] MED LIST: ASCORBIC ACID500 MG PO; CIPRO500 MG PO; Calcium Carbonate PO; DOXYCYCLINE HY100 MG PO; GLIPIZIDE5 MG PO; GLYBURIDE5 MG PO; LEVEMIR100 UNIT/1 SC; LISINOPRIL10 MG PO; MAGNESIUM OXID400 MG PO; METOCLOPRAMIDE10 MG PO; Multivitamins/Minerals PO; NIFEDIPINE ER30 M1 PO; TYLENOL WITH C1 EACH PO; ZINC SULFATE220 M1 PO
[2018-05-10] MEDS ORDERED: SODIUM CHLORIDE 0.9% 1000ML 1,000 ML IV STA (20:09)
[2018-05-10] MEDS ORDERED: PIPER-TAZ 3.375 GM 50 ML IV STA (20:09)
[2018-05-10] MEDS ORDERED: VANCOMYCIN 1GM/NS 250 ML 250 ML IV STA (20:09)
[2018-05-10 20:21] LABS: BASOPHILS # (AUTO) 0.1 (0.0-0.1); BASOPHILS % 0.3 % (0.0-1.0); EOSINOPHILS # (AUTO) 0.2 (0.0-0.4); HEMATOCRIT 27.2 % (38.2-49.6); HEMOGLOBIN 9.2 g/dL (14.0-18.0); LYMPHOCYTES # (AUTO) 2.1 (1.0-3.2); LYMPHOCYTES % 12.1 % (18.0-39.1); MEAN CORPUSCULAR HGB CONC 33.8 g/dL (31-35); MEAN CORPUSCULAR VOLUME 82.7 fL (81-99); MONOCYTES # (AUTO) 1.2 (0.2-0.8); NEUTROPHILS # (AUTO) 13.2 (2.1-6.9); NEUTROPHILS % 77.2 % (38.7-80.0); PLATELET COUNT 556 x10e3/uL (140-360); RED BLOOD COUNT 3.29 x10e6/uL (4.3-5.7); RED CELL DISTRIBUTION WIDTH 14.7 % (11.7-14.4)
[2018-05-10 20:31] LABS: INR 1.31; PROTHROMBIN TIME 15.3 seconds (11.9-14.5)
[2018-05-10 20:32] LABS: PARTIAL THROMBOPLASTIN TIME 38.1 seconds (23.8-35.5)
[2018-05-10 20:41] LABS: ALBUMIN 2.5 g/dL (3.5-5.0); ALBUMIN/GLOBULIN RATIO 0.4 (0.8-2.0); ANION GAP 15.7 mmol/L (8-16); CREATININE, SERUM 1.77 mg/dL (0.72-1.25); POTASSIUM 3.7 mmol/L (3.5-5.1)
--- NOTE | 2018-05-10 21:59 | Diagnostic Imaging Report ---
CHEST SINGLE (PORTABLE), 05/10/2018 8:09 PM Technique: CHEST SINGLE (PORTABLE) Comparison: 03/03/2018 Clinical history: Left lower extremity cellulitis Findings: Stable appearance of the heart, mediastinum, lungs and pleural spaces. Impression: 1. Lines/Tubes: None 2. No acute abnormality. Signed by: Dr Liss Banks MD on 05/10/2018 9:55 PM
--- NOTE | 2018-05-10 22:02 | Diagnostic Imaging Report ---
FOOT LEFT COMPLETE Comparison: None Clinical history: Wound of the left lateral foot, osteomyelitis Findings: Marked diffuse soft tissue swelling with soft tissue tissue defect of the left lateral foot; mild underlying gas which may be related to gas-forming bacteria and/or tracking from large ulcer/wound. Status post transmetatarsal amputation with abnormal alignment at the TMT joints. Cortical destruction of the 5th metatarsal stump and demineralization/erosions of the 2nd-4th and possibly 1st metatarsal stumps. Impression: Radiographic findings of osteomyelitis and soft tissue gangrene with gas forming bacteria. Signed by: Dr Liss Banks MD on 05/10/2018 9:59 PM
[2018-05-10 22:06] LABS: ANISOCYTOSIS SLIGHT; EOSINOPHILS % (MANUAL) 3 % (0-7); HYPOCHROMASIA SLIGHT; LYMPHOCYTES % (MANUAL) 11 % (19-48); MONOCYTES % (MANUAL) 11 % (3.4-9.0); NEUTROPHILS % (MANUAL) 75 % (40-74); PLATELET ESTIMATE MODERATELY INCREASED; PLATELET MORPHOLOGY COMMENT NORMAL; RBC MORPHOLOGY COMMENT NORMAL
[2018-05-10] MEDS ORDERED: PIPER-TAZ 3.375 GM 50 ML ONE (23:30)
[2018-05-10] MEDS ORDERED: VANCOMYCIN 1GM/NS 250 ML 250 ML ONE (23:30)
[2018-05-10] MEDS ORDERED: ONDANSETRON HCL INJ 2 MG/ML VIAL ONE (23:44)
[2018-05-10] MEDS ORDERED: MORPHINE SULFATE 2 MG/ML SYR ONE (23:44)
[2018-05-10] MEDS: ONDANSETRON HCL INJ 2 MG/ML VIAL IV PRN (23:48)
[2018-05-10] MEDS: MORPHINE SULFATE 2 MG/ML SYR IV PRN (23:48)
[2018-05-11] MEDS ORDERED: DEXTROSE 50% SYRINGE 50 ML IV PRN (00:30)
[2018-05-11] MEDS ORDERED: SODIUM CHLORIDE 0.9% 1000ML 1,000 ML ONE (00:38)
[2018-05-11] MEDS: PIPER-TAZ 3.375 GM 50 ML IV SCH ×3 (06:07→18:06)
[2018-05-11] MEDS: INSULIN REGULAR, HUMAN 100 UNIT/1 ML 3ML VIAL SQ SCH ×4 (10:00→21:15)
[2018-05-11] MEDS ORDERED: VANCOMYCIN 1GM/NS 250 ML 250 ML IV SCH (11:00)
[2018-05-11 11:55] VITALS: BP 164/97
[2018-05-11 12:00] VITALS: BP 164/97
[2018-05-11] MEDS ORDERED: SODIUM CHLORIDE 0.9% 250ML 250 ML ONE (12:30)
[2018-05-11] MEDS ORDERED: SODIUM HYPOCHLORITE 0.25% 480 ML SOLN IR ONE (14:00)
--- NOTE | 2018-05-11 15:08 | History and Physical ---
NO DICTATION, LENGTH 0:4 Job#: [id number] RI
[2018-05-11 16:00] VITALS: BP 171/106
[2018-05-11] MEDS: MORPHINE SULFATE 2 MG/ML SYR IV PRN (16:30)
[2018-05-11] MEDS: ONDANSETRON HCL INJ 2 MG/ML VIAL IV PRN (16:31)
[2018-05-11] MEDS ORDERED: NON-FORMULARY MEDICATION (Insulin Detemir (Levemir) 20 UNITS) SC SCH (19:30)
[2018-05-11] MEDS ORDERED: SODIUM CHLORIDE 0.9% 1000ML 1,000 ML IV SCH (19:30)
[2018-05-11 20:00] VITALS: BP 170/87
[2018-05-11] MEDS: COLLAGENASE 5 GM TUBE TOP SCH (21:00)
[2018-05-11] MEDS: INSULIN DETEMIR 100 UNIT/ML PEN SQ SCH (21:00)
[2018-05-11] MEDS: NIFEDIPINE CR 30 MG TAB PO SCH (21:15)
[2018-05-11] MEDS: CLINDAMYCIN 300MG 50 ML IV SCH (22:00)
[2018-05-12] VITALS: BP 152/79
--- NOTE | 2018-05-12 00:02 | History and Physical ---
PRIMARY CARE PHYSICIAN: Unknown. CHIEF COMPLAINT: Left foot infection. HISTORY OF PRESENT ILLNESS: This is a 43-year-old man with a history of left diabetic foot ulcer and uncontrolled diabetes mellitus, who was recently seen by his loss prevention specialist, recommended for followup downtown for surgical management and IV antibiotics. Patient states that he went to [facility] and other facility downtown, but did not stay due to length of wait time. Now, patient presented here for evaluation of the left foot. Here, he was found to have osteomyelitis of the left foot. He is admitted for further evaluation and management. Denies any pain at the site. Has not been on a strict diabetic diet. PAST MEDICAL HISTORY: Diabetes mellitus type 2; left diabetic foot ulcer, status post TMA (transmetatarsal amputation); acute pericarditis, status post pericardial window in November 2010; severe sepsis; acute kidney injury. PAST SURGICAL HISTORY: Pericardial window, left transmetatarsal amputation. ALLERGIES: PER ELECTRONIC MEDICAL RECORD. FAMILY/SOCIAL HISTORY: Diabetes mellitus and hypertension in his family. Patient's daughter is involved in his care. No alcohol or illicits or cigarettes. MEDICATIONS: Per electronic medical record. REVIEW OF SYSTEMS: Denies any dizziness, chest pain, shortness of breath, fever, chills, sweats, nausea, vomiting, diarrhea. PHYSICAL EXAMINATION: VITAL SIGNS: Have been reviewed. GENERAL APPEARANCE: Tired-appearing man resting in bed. HEENT: Anicteric. Pupils respond to light. No oral lesions. CARDIOVASCULAR: Normal S1 and S2. LUNGS: Moderate breath sounds. ABDOMEN: Soft, nontender, nondistended. EXTREMITIES: No edema or calf tenderness in the right leg. On the left foot, he has transmetatarsal amputation with large defect in the foot due to ulcer and signs of infection and gangrenous changes. Foot is cool and nontender. He has large necrotic-appearing ulcer on the lateral aspect of the foot, and on the dorsal surface he has a large defect due to ulcer. SKIN: Dry. PSYCHIATRIC: Flat affect. NEUROLOGICAL: Alert and oriented x3. Moving all extremities. LABS: Reviewed. MEDICATIONS: Reviewed. ASSESSMENT: This is a 43-year-old man: 1. Left diabetic foot ulcer. 2. Diabetes mellitus type 2. 3. Acute kidney injury. 4. Osteomyelitis of the left foot. 5. Noncompliance with diet. 6. Normocytic anemia. 7. Reactive thrombocytosis. 8. Obesity. PLAN: 1. Continue IV Zosyn. Patient received IV vancomycin, will change to IV clindamycin due to his renal dysfunction. 2. Surgery consultation. 3. Give IV fluids for acute kidney injury. 4. Lovenox and Pepcid for prophylaxis. 5. I have discussed with patient need for continued care once the surgery is performed. He will need IV antibiotics and he will need wound care, and follow up to avoid further infection and amputation. Patient will consider whether he wants to receive the surgery here versus downtown where he can receive postoperative supportive care at the skilled facilities with IV antibiotics and wound care services. His decision will be provided tomorrow as to plan of care that he desires. Job#: [id number]
[2018-05-12] MEDS: PIPER-TAZ 3.375 GM 50 ML IV SCH ×2 (00:38→06:12)
[2018-05-12] MEDS: MORPHINE SULFATE 2 MG/ML SYR IV PRN ×2 (00:58→10:15)
[2018-05-12 04:00] VITALS: BP 148/93
[2018-05-12] MEDS: CLINDAMYCIN 300MG 50 ML IV SCH (06:12)
[2018-05-12 06:19] LABS: ALANINE AMINOTRANSFERASE 11 IU/L (0-55); ALBUMIN 1.9 g/dL (3.5-5.0); ALBUMIN/GLOBULIN RATIO 0.3 (0.8-2.0); ALKALINE PHOSPHATASE 125 IU/L (40-150); ANION GAP 10.4 mmol/L (8-16); BLOOD UREA NITROGEN 13 mg/dL (7-26); BUN/CREATININE RATIO 9 (6-25); CALCIUM 9.1 mg/dL (8.4-10.2); CARBON DIOXIDE 31 mmol/L (22-29); CHLORIDE 100 mmol/L (98-107); CREATININE, SERUM 1.47 mg/dL (0.72-1.25); EST GLOMERULAR FILTRATION RATE > 60 ML/MIN (60-); GLUCOSE 115 mg/dL (74-118); POTASSIUM 3.4 mmol/L (3.5-5.1); SODIUM 138 mmol/L (136-145)
[2018-05-12 06:45] LABS: CHOL/HDL RATIO 6.5 (3.9-4.7)
[2018-05-12 06:56] LABS: BASOPHILS # (AUTO) 0.1 (0.0-0.1); BASOPHILS % 0.4 % (0.0-1.0); EOSINOPHILS # (AUTO) 0.2 (0.0-0.4); EOSINOPHILS % 1.8 % (0.0-6.0); HEMATOCRIT 25.8 % (38.2-49.6); HEMOGLOBIN 8.5 g/dL (14.0-18.0); LYMPHOCYTES # (AUTO) 2.2 (1.0-3.2); LYMPHOCYTES % 17.4 % (18.0-39.1); MEAN CORPUSCULAR HEMOGLOBIN 27.7 pg (28-32); MEAN CORPUSCULAR HGB CONC 32.9 g/dL (31-35); MONOCYTES # (AUTO) 1.1 (0.2-0.8); MONOCYTES % 8.5 % (4.4-11.3); NEUTROPHILS # (AUTO) 8.9 (2.1-6.9); NEUTROPHILS % 70.7 % (38.7-80.0); PLATELET COUNT 439 x10e3/uL (140-360); RED BLOOD COUNT 3.07 x10e6/uL (4.3-5.7); RED CELL DISTRIBUTION WIDTH 14.8 % (11.7-14.4)
[2018-05-12] MEDS ORDERED: PRAVASTATIN SOD20 MG PO (07:24)
[2018-05-12] MEDS ORDERED: CLINDAMYCIN HC150 MG PO (07:24)
[2018-05-12] MEDS ORDERED: CIPROFLOXACIN500 MG PO (07:24)
[2018-05-12] MEDS ORDERED: FAMOTIDINE 20 MG TAB PO SCH (07:30)
[2018-05-12 08:00] VITALS: BP 159/88
[2018-05-12 08:50] VITALS: BP 159/88
[2018-05-12] MEDS ORDERED: ZINC SULFATE 220 MG CAP PO SCH (09:00)
[2018-05-12] MEDS: COLLAGENASE 5 GM TUBE TOP SCH (09:04)
[2018-05-12] MEDS: NIFEDIPINE CR 30 MG TAB PO SCH (09:04)
[2018-05-12] MEDS: INSULIN DETEMIR 100 UNIT/ML PEN SQ SCH (09:04)
[2018-05-12] MEDS: INSULIN REGULAR, HUMAN 100 UNIT/1 ML 3ML VIAL SQ SCH (09:05)
[2018-05-12] MEDS: ONDANSETRON HCL INJ 2 MG/ML VIAL IV PRN (10:15)
[2018-05-12 12:00] VITALS: BP 166/97
[2018-05-12] MEDS ORDERED: ENOXAPARIN SOD INJ 40 MG/0.4 ML SYR SC SCH (17:00)
== END 2018-05-12 12:51 | disposition home or self-care (01) | DRG 638 ==
LOC: ER 19:19 → ERHOLD 05-11 00:20 → MED/SURG3 05-11 11:50
PROVIDERS: ADMIT Internal Medicine; ATTEND Internal Medicine
DX: E11.69 Type 2 diabetes mellitus with other specified complication (principal); L97.424 Non-pressure chronic ulcer of left heel and midfoot with necrosis of bone; M86.8X7 Other osteomyelitis, ankle and foot; E11.621 Type 2 diabetes mellitus with foot ulcer; E11.65 Type 2 diabetes mellitus with hyperglycemia; Z89.9 Acquired absence of limb, unspecified; N17.9 Acute kidney failure, unspecified; Z91.11 Patient's noncompliance with dietary regimen; D47.3 Essential (hemorrhagic) thrombocythemia; E66.9 Obesity, unspecified; Z68.32 Body mass index [BMI] 32.0-32.9, adult
CPT/HCPCS: 36415; 71045; 80053; 80061; 82948; 83036; 83605; 85025; 85610; 85651; 85730; 87040; 87071; 87186; 87205; 96361; 99284; J2270; J2405; J2543; J3370; J7030; J7050